=== PATIENT | female | born 1935 | race Caucasian/White ===

== ENCOUNTER 2019-01-27 13:15 | Observation (INO) | payer MEDICARE, OTHER, SELFPAY ==
[2019-01-27] VITALS (8 sets, daily range): BP systolic 131–166; BP diastolic 53–84; PULSE 64–100; RESP 14–18; TEMP 36.7–37; O2SAT 94–100; BMI 27.3; BMI 26.4
--- NOTE | 2019-01-27 13:32 | NURSING ---
Addendum entered by Modesta Zuniga 01/27/19 14:45: updated med list received from pt's daughter Original Note: HAVING DIFFICULTY RETRIEVING INFORMATION ON HX/MEDS FROM PT AND SISTER. MED LIST ENTERED IS FROM 2017; SISTER WILLING TO GO HOME AND BRING BACK PILL PACKS IF NECESSARY.
--- NOTE | 2019-01-27 13:41 | EKG12_ITS ---
Test Reason : EPIGASTRIC PAIN Blood Pressure : / mmHG Vent. Rate : 086 BPM Atrial Rate : 066 BPM P-R Int : 000 ms QRS Dur : 084 ms QT Int : 380 ms P-R-T Axes : 000 044 067 degrees QTc Int : 454 ms Atrial fibrillation with a competing junctional pacemaker and sinus rhythm Abnormal ECG Confirmed by BUNNY RUBIO, PILAR ([id number]), tape editor ERROL ARCHULETA ([id number] on 01/29/2019 11:43:39 AM Referred By: Mag Maxwell Confirmed By:PILAR HOLLIS MD
--- NOTE | 2019-01-27 13:41 | RAD_ITS ---
STUDY: X-RAY CHEST REASON FOR EXAM: Female, 83 years old. Shortness of breath TECHNIQUE: Single AP portable view of the chest. COMPARISON: None. FINDINGS: The lungs are clear and expanded. There is no demonstrated pleural abnormality. Sternal cerclage wires are present from a prior sternotomy. Normal mediastinum and mikaela. Normal visualized pulmonary arteries. There is atherosclerotic calcification of the aortic arch with tortuosity. There are diffuse degenerative changes of the visualized thoracic spine. Normal visualized ribs, clavicles, and shoulders. There is postoperative change in the right upper quadrant status post cholecystectomy. RAD/Chest 1 View (Portable) IMPRESSION: Degenerative changes, as described above. Status post sternotomy. No demonstrated acute cardiopulmonary process. Electronically Signed: Katheryn Bennett MD at 16:11 EDT Tel , Service support ,
--- NOTE | 2019-01-27 13:41 | CT_ITS ---
STUDY: CT ABDOMEN AND PELVIS WITH CONTRAST REASON FOR EXAM: Female, 83 years old. RADIATION DOSAGE (If Supplied By Facility): CTDIvol = ( 16.83 ) mGy, DLP = ( 843.89 ) mGycm TECHNIQUE: Transaxial images were obtained from the dome of the diaphragm to the symphysis pubis without oral contrast. 100ML IV Isovue 370 was administered. Sagittal and coronal images were reconstructed. Individualized dose optimization techniques were used for this CT. COMPARISON: None. FINDINGS: The visualized lung bases are unremarkable. There is moderate cardiac enlargement. There is visible postoperative change at the aortic root there is calcification of the coronary arteries. Sternotomy wires are seen midline. There is intra and extrahepatic ductal dilatation. The common duct measures up to 8.9 mm. There is no obvious visualized stone. There is a distended appearance of the adjacent duodenum. There are surgical clips in the gallbladder fossa consistent with a prior cholecystectomy. The well-circumscribed cystic structure within the spleen measuring 1.2 x 1.5 cm. There is an atrophied appearance of most of the pancreas. There is a mildly enlarged appearance of the head of the pancreas. Normal bilateral adrenal glands. There is mild right pelviectasis. There is a distended appearance of the proximal duodenum which may be partially compressing the right proximal ureter. Otherwise the bladder is distended. There is a left renal cyst demonstrated measuring 1.6 x 1.9 cm. There is a thick-walled appearance of the first part of the duodenum image #40 of the coronal views. Are mildly distended loops of small bowel. There is moderate stool in the colon there is diverticulosis without definitive diverticulitis. There is mild wall thickening of the sigmoid colon. The appendix is visualized and appears normal. Aorta is partially calcified. Normal inferior vena cava. Normal retroperitoneum. Moderate is distended. There is absence of the uterus consistent with a prior hysterectomy. Normal abdominal wall. There is degenerative change in the lumbar spine. There is anterolisthesis at the level L3-L4 and L4-L5. There is disc space narrowing broad disc bulge moderate neural foramina narrowing mild to moderate central stenosis. At L4-L5 there is severe neural foraminal narrowing severe central stenosis facet arthropathy. At L5-S1 there is facet arthropathy. There is degenerative change of the SI joints. CT/Abdomen/Pelvis W IV Cont ONLY IMPRESSION: There is abnormal thick walled appearance of the first part of the duodenum consistent with duodenitis cannot exclude underlying mass recommend consideration for further imaging such as potential endoscopy. Intra and extrahepatic ductal dilatation. Mild right pelviectasis right kidney which may be related to the adjacent distention of the duodenum. Status post cholecystectomy. Diverticulosis mild thickening of the wall the colon which may be chronic versus mild chronic colitis. Status post hysterectomy. Coronary artery calcification. Status post sternotomy Multilevel degenerative change of the thoracolumbar spine. Electronically Signed: Katheryn Bennett MD at 15:30 EDT Tel , Service support ,
--- NOTE | 2019-01-27 13:42 | CT_ITS ---
STUDY: CTA NECK WITH CONTRAST REASON FOR EXAM: Female, 83 years old. Head and neck pain RADIATION DOSAGE (If Supplied By Facility): CTDIvol = ( ) mGy, DLP = ( ) mGycm TECHNIQUE: CT angiography with multi-detector data acquisition was performed from the aortic arch to the skull base following intravenous administration of 100ML IV Isovue 370. MIP images were reconstructed from the axial data set. Post-processing of the angiographic images was performed, with multiplanar reformation and 3D reconstruction. Individualized dose optimization techniques were used for this CT. COMPARISON: None. FINDINGS: AORTIC ARCH: There is atherosclerotic calcific plaque formation of the aortic arch and great vessels arising from the aortic arch, without a hemodynamically significant stenosis. There is a normal origin of the brachiocephalic, left common carotid, and left subclavian arteries. RIGHT CAROTID ARTERIES: There is atherosclerotic tortuous elongation of the right common carotid artery. There is mild atherosclerotic plaque formation with minimal narrowing of the right carotid bulb. There is mild atherosclerotic plaque formation of the origin of the right internal carotid artery with less than 50% cross sectional diameter stenosis. Normal visualized cervical portion of the right internal carotid artery. Normal origin of the right external carotid artery (ECA). LEFT CAROTID ARTERIES: Normal left common carotid artery (CCA). There is mild atherosclerotic plaque formation with minimal narrowing of the left carotid bulb. There is moderate atherosclerotic plaque formation of the origin of the left internal carotid artery with an estimated stenosis of 50-69% stenosis. Normal visualized cervical portion of the left internal carotid artery. Normal origin of the left external carotid artery (ECA). VERTEBRAL ARTERIES: Normal bilateral vertebral arteries. There is degenerative change of the cervical spine. There is multilevel degenerative change visualized with multilevel facet arthropathy and mild neural foramina narrowing. CT/CTA Neck W/WO Contrast IMPRESSION: Less than 50% stenosis of the right internal carotid artery. 50-69% stenosis suggested origin of the left internal carotid artery. Electronically Signed: Katheryn Bennett MD at 16:03 EDT Tel , Service support ,
--- NOTE | 2019-01-27 13:42 | CT_ITS ---
STUDY: CTA OF THE BRAIN REASON FOR EXAM: Female, 83 years old. Pain RADIATION DOSAGE (If Supplied By Facility): CTDIvol = ( 32.87 ) mGy, DLP = ( 1314.0 ) mGycm TECHNIQUE: CT angiography was performed with a multi-detector CT scanner. Data acquisition was obtained from the skull base through the vertex following intravenous administration of 100ML IV Isovue 370. MIP images were reconstructed from the axial data set. Post-processing of the angiographic images was performed, with multiplanar reformation and 3D reconstruction. The study is limited. Limited reconstructed images were performed only with sagittal and coronal reformatted images this limits the evaluation of the soft tissue. Individualized dose optimization techniques were used for this CT. COMPARISON: None. FINDINGS: Normal bilateral petrous carotid arteries. There is calcified plaque formation of the right cavernous carotid artery, with a mild stenosis (less than 50%). Normal left cavernous carotid artery with a normal supraclinoid bifurcation. Normal right A1 segments of the anterior cerebral artery. Normal left A1 segments of the anterior cerebral artery. There is non-visualization of the anterior communicating artery (ACOM). Normal bilateral A2 segments of the anterior cerebral arteries. Normal right M1 and M2 segments of the middle cerebral arteries, with a normal M1 bifurcation. Normal left M1 and M2 segments of the middle cerebral arteries, with a normal M1 bifurcation. Normal right posterior communicating artery (PCOM). There is non-visualization of the left posterior communicating artery (PCOM). There is calcification of the right-sided vertebral artery with a small focus of mild to moderate plaque formation over a segment of 2.8 mm. Normal basilar artery with a normal basilar bifurcation. The visualized bilateral superior cerebellar (SCA) arteries are normal. Normal bilateral P1, P2 and visualized P3 segments of the posterior cerebral arteries. There is no demonstrated aneurysm of the [place]. There is a CT scan of the head provided with this study without contrast. There is mild atrophy no evidence of acute hemorrhage infarct or edema. CT/CTA Head W/WO Contrast IMPRESSION: Normal [place] without a demonstrated aneurysm or hemodynamically significant stenosis. Electronically Signed: Katheryn Bennett MD at 15:37 EDT Tel , Service support ,
--- NOTE | 2019-01-27 13:48 | NURSING ---
NO OLD EKGS
[2019-01-27 13:57] LABS: Absolute Lymphocyte Count 1.59 X10^3/ul (0.83-4.51); Absolute Neutrophil Count 7.5 X10^3/uL (2.0-7.7); Basophil# 0.04 X10^3/uL; Basophil% 0.4 % (0-1); Eosinophil# 0.01 X10^3/uL; Eosinophils% 0.1 % (0-5); Hematocrit 37.8 % (37-47); Hemoglobin 12.5 g/dl (12.0-15.0); Lymphocyte # 1.59 X10^3/ul (4.0); Lymphocyte % 16.1 % (19-41); Mean Corp Hgb Conc 33.1 g/gl (32-36); Mean Corpuscular Hgb 28.6 pg (27.0-32.0); Mean Corpuscular Volume 86.5 fL (81-99); Mean Platelet Vol. 12.7 fl (6.2-12.0); Monocyte# 0.68 X10^3/uL; Monocyte% 6.9 % (0-10); Neutrophil # 7.53 X10^3/uL (2.7-7.7); Neutrophil % 76.2 % (47-70); POSITIVE COUNT NO; POSITIVE DIFFERENTIAL NO; POSITIVE MORPHOLOGY NO; Platelet Count 213 K/mm3 (150-450); RBC Distribution Width CV 14.1 % (11.6-14.6); RBC Distribution Width SD 43.4 fl (35.1-43.9); Red Blood Count 4.37 M/mm3 (4.2-5.4); White Blood Count 9.9 K/mm3 (4.4-11.0)
[2019-01-27 14:05] LABS: Mucous, Urine 0 SEEN /hpf (<or=2+); Red Blood Cells-Urine 0 SEEN /hpf (0-5); Squamous Epithelial Cells - UA 0 SEEN /hpf (5-10); White Blood Cells 0 SEEN /hpf (0-5)
[2019-01-27 14:07] LABS: Color, Urine Yellow (Yellow); Glucose, Dipstick Normal (Normal); Ketone-Dipstick Negative (Negative); Leukocyte Esterase-Dipstick Negative /ul (Negative); Nitrite-Dipstick Negative (Negative); Occult Blood-Urine 10 /ul (Negative); Protein-Dipstick Negative (Negative); Urine Bilirubin Dipstick Negative (Negative); Urine Clarity Clear (Clear); Urine Urobilinogen Normal (Normal)
[2019-01-27 14:09] LABS: AST(SGOT) 21 U/L (15-37); Alanine Aminotransfer ALT/SGPT 19 U/L (13-56); Albumin, Serum 3.6 g/dL (3.2-5.0); Alkaline Phosphatase 86 U/L (45-117); Anion Gap 9 (5-15); BUN 35 mg/dL (7-18); BUN/Creat Ratio 22.4 RATIO (10-20); Bilirubin, Direct 0.19 mg/dL (0.00-0.30); Calcium,Total 9.1 mg/dL (8.5-10.1); Chloride 107 mmol/L (98-107); Creatinine, Serum 1.56 mg/dL (0.55-1.02); EST Glomerular Filtration Rate 34 mL/min (>60); Est Glom Filt Rate - Afr Amer 41 mL/min (>60); Estimated Creatinine Clearance 24.59 ml/min; Globulin 3.2 g/dL (2.2-4.2); Glucose 145 mg/dL (74-106); Lipase 121 U/L (73-393); Potassium 4.2 mmol/L (3.5-5.1); Protein, Total 6.8 g/dL (6.4-8.2); Sodium Level 139 mmol/L (136-145)
[2019-01-27 14:17] LABS: Bacteria 1+ /hpf (None Seen); Hyaline Cast 10-25 SEEN /lpf (0-5)
--- NOTE | 2019-01-27 14:39 | ED.VISSUMM ---
- ER Visit Summary Date of Service: 01/27/19 Chief Complaint: Headache History of Present Illness: The patient is a 83 F presenting with headache and pain all over. Patient's sister went to check on her this morning. She complains of headache and pain all over. She has had a decreased appetite and has not been eating. Patient has a history of dementia and history is limited. Per her family her primary caregiver is her daughter who lives in [place]. She lives alone. Her sister took her blood pressure this morning and it was low. EMS was called. On their arrival her blood pressure was normal. Physical Examination: Vitals are stable. Blood pressure 133/53. Patient is afebrile. Alert no acute distress. HEENT exam is unremarkable. Neck is supple. No meningismus Lungs are clear and equal bilaterally. Heart is irregularly irregular Abdomen is soft epigastric tenderness with no rebound or guarding Extremities are unremarkable. Skin is warm and dry. No focal neurologic deficit. Alert and oriented x2 Remainder of exam is unremarkable. Emergency Department Course and Treatment: EKG shows A. fib rate of 86 with no acute ischemic changes. CBC, chemistries unremarkable other than glucose 145, BUN 35, creatinine 1.56. Liver lipase are normal. Urinalysis unremarkable. Troponin 0.022. CT abdomen pelvis shows there is abnormal thick walled appearance of the first part of the duodenum consistent with duodenitis cannot exclude underlying mass recommend consideration for further imaging such as potential endoscopy. Intra and extrahepatic ductal dilatation. Mild right pelviectasis right kidney which may be related to the adjacent distention of the duodenum. Status post cholecystectomy. Diverticulosis mild thickening of the wall the colon which may be chronic versus mild chronic colitis. Status post hysterectomy. Coronary artery calcification. Status post sternotomy. Multilevel degenerative change of the thoracolumbar spine. CTA neck shows less than 50% stenosis of the right internal carotid artery. 50-69% stenosis suggested origin of the left internal carotid artery. CTA head shows normal [place] without a demonstrated aneurysm or hemodynamically significant stenosis. Chest xray shows degenerative changes, as described above. Status post sternotomy. No demonstrated acute cardiopulmonary process. Discussed with family at bedside and her power of assistant city attorney on the phone. They feel patient needs placement and can no longer live alone. Discussed with the hospitalist for admission. Disposition: Admission Impression: Functional decline, duodenitis, dementia This note was generated with Dragon dictation software. It may contain incorrect words, spelling, and punctuation that were not noted in review of the chart prior to signing ED Disposition - Plan for ED Patient: Referrals: Evelyn Larsen [Primary Care Provider] -
--- NOTE | 2019-01-27 17:23 | NURSING ---
[facility]
--- NOTE | 2019-01-27 17:51 | HP.PCM_ITS ---
<Aman Basilio - Last Filed: 01/27/19 17:46> Problem List (1) Weakness Status: Acute (2) Paroxysmal A-fib Status: Chronic (3) Alzheimer's dementia Status: Chronic (4) HTN (hypertension) Status: Chronic (5) H/O aortic valve repair Status: Chronic History of Present Illness Date of Admission: 01/27/19 Chief Complaint: weakness The patient is a 83 year old F with pmhx of paroxysmal afib occurring after aortic valve replacement and alzheimers dementia who presented to the ER today with weakness. She is a poor historian and family is present providing most of hx. She has apparently qualified for memory care placement in the past however her daughter CHRIS did not feel that she was ready at that time. CHRIS had been planning to move her to [place] with her. She is not currently present. The patient was very weak this AM, sleeping in, not able to take many steps before becoming very tired and needing to sit down. Her family checked her BP at home and was noted to be 70/42 however she has had a normal pressure in the ER without treatment. She also has not been eating lately, and has been missing her medications at home (family checked the med boxes). She lives alone in a house. She complains of midepigastric discomfort and headache. In the ER she was in rate controlled afib. She used to be on metoprolol but is now off for unclear reasons. She has not fallen. She has no nausea vomiting, diarrhea, fevers, or chills. Her headache is mild, frontal, BL. Family is hopeing she will be placed, they are concerned the CHRIS will not allow placement. [] Past Medical History Past Medical History (Chronic Problems): Chronic Problems Paroxysmal A-fib (Chronic) Alzheimer's dementia (Chronic) HTN (hypertension) (Chronic) H/O aortic valve repair (Chronic) Allergies oxycodone Allergy (Verified 01/27/19 13:26) Other amoxicillin [From Augmentin] Adverse Reaction (Verified 01/27/19 13:26) Nausea clarithromycin [From Biaxin] Adverse Reaction (Verified 01/27/19 13:26) Nausea clavulanic acid [From Augmentin] Adverse Reaction (Verified 01/27/19 13:26) Nausea lovastatin [From Mevacor] Adverse Reaction (Verified 01/27/19 13:26) Other pravastatin [From Pravachol] Adverse Reaction (Verified 01/27/19 13:26) Abd cramps/diarrhea simvastatin [From Zocor] Adverse Reaction (Verified 01/27/19 13:26) Abd cramps/diarrhea Home Medications: Ambulatory Orders Medication Instructions Recorded Amlodipine [Norvasc] 5 mg PO BID 01/27/19 Aspirin E.C. [Ecotrin] 81 mg PO DAILY 01/27/19 Atorvastatin Calcium [Lipitor] 20 mg PO QHS 01/27/19 Calcium Carbonate [Calcium] 600 mg PO DAILY 01/27/19 Carvedilol 3.125 mg PO QHS 01/27/19 Cholecalciferol (Vitamin D3) 2,000 unit PO DAILY 01/27/19 [Vitamin D3] Donepezil HCl [Aricept] 20 mg PO BID 01/27/19 Furosemide [Lasix] 40 mg PO DAILY 01/27/19 Losartan Potassium [Cozaar] 100 mg PO DAILY 01/27/19 Multivitamin [Multiple Vitamins] 1 each PO DAILY 01/27/19 [place]-3 Fatty Acids [Fish Oil] 500 mg PO DAILY 01/27/19 Omeprazole [Prilosec] 20 mg PO BID 01/27/19 Surgical History: - - aortic valve replacement Psychiatric History: No pertinent psych hx [employer] [employer]ISTS History: No pertinent [facility] [employer] history Lives: Alone Smoking Status: Never smoker Tobacco Use: Non-smoker Alcohol: None Drugs: None - *Family History Maternal History Items: No pertinent history Paternal History Items: No pertinent history Review of Systems Constitutional: Reports: Weakness, Fatigue. Denies: Chills, Fever, Weight Change HEENT: Denies: Head Aches, Sinus Congestion, Sinus Drainage, Sore Throat, Visual Changes Cardiovascular: Denies: Chest Pain, Palpitations Respiratory: Denies: Cough, Shortness of Breath, Shortness of breath at rest, Shortness of breath upon exertion, Sputum production, Wheezing Gastrointestinal: Reports: Abdominal Pain. Denies: Diarrhea, Nausea, Vomiting Genitourinary: Denies: Dysuria Musculoskeletal: Denies: Joint Pain, Joint Tenderness Skin: Denies: Rash, Wounds Neurological: Reports: Confusion - (baseline), Headaches. Denies: Change in Speech, Slurred speech, Focal weakness, Numbness, Tingling Psychiatric: Denies: Anxiety, Depression, Homicidal Ideations, Suicidal Ideations Hematologic/ Lymphatic: Denies: Easy Bruising, Easy Bleeding VTE Information - Inpt Only VTE Present on Admission: No VTE Mechan Device Prophylaxis: None VTE Pharm Prophylaxis ordered?: Yes Patient Problems: Active and Suspected Problems Weakness (Acute) - Physical Exam General: Alert, Oriented x3, Cooperative HEENT: Atraumatic, PERRLA, EOMI, Normocephalic Neck: Supple, No JVD, Negative Carotid Bruits Lungs: Clear to auscultation, Normal air movement Cardiovascular: No murmurs, Irregular Rate, Murmur - 3/6 systolic murmur Abdomen: Bowel Sounds Present, Soft, Non Tender, Tender - mild tenderness midepigastric Extremities: No edema, Capillary Refill Less than 3 Seconds Skin: No rashes, No breakdown Musculoskeletal: No Tenderness to Palpation of Joints or Extremities Neurological: Cranial nerves II-XII grossly intact Psych/Mental Status: Normal Affect, Appropriate Vital Signs Temp Pulse Resp BP Pulse Ox 98.3 F 88 18 156/84 H 97 01/27/19 13:17 01/27/19 16:04 01/27/19 16:04 01/27/19 16:04 01/27/19 16:04 Oxygen Delivery Method Room Air Weight: 164 lb 0.383 oz Body Mass Index (BMI) 27.3 Laboratory Tests Past 24 Hrs 01/27/19 01/27/19 01/27/19 13:25 13:25 14:02 WBC 9.9 RBC 4.37 Hgb 12.5 Hct 37.8 MCV 86.5 MCH 28.6 MCHC 33.1 RDW 14.1 RDW Differential 43.4 Plt Count 213 MPV 12.7 H Immature Gran % (Auto) 0.300 Neut % (Auto) 76.2 H Lymph % (Auto) 16.1 L [place] % (Auto) 6.9 Eos % (Auto) 0.1 Baso % (Auto) 0.4 Absolute Neuts (auto) 7.5 Absolute Lymphs (auto) 1.59 Total Counted Not Reportable Sodium 139 Potassium 4.2 Chloride 107 Carbon Dioxide 23.0 Anion Gap 9 BUN 35 H Creatinine 1.56 H Estim Creat Clear Calc 24.59 Est GFR (MDRD) Af Amer 41 L Est GFR (MDRD) Non-Af 34 L BUN/Creatinine Ratio 22.4 H Glucose 145 H Calcium 9.1 Total Bilirubin 0.50 Direct Bilirubin 0.19 AST 21 ALT 19 Alkaline Phosphatase 86 Troponin I 0.022 Total Protein 6.8 Albumin 3.6 Globulin 3.2 Lipase 121 Urine Color Yellow Urine Clarity Clear Urine pH 5.0 Ur Specific [place] 1.010 Urine Protein Negative Urine Glucose (UA) Normal Urine Ketones Negative Urine Occult Blood 10 H Urine Nitrite Negative Urine Bilirubin Negative Urine Urobilinogen Normal Ur Leukocyte Esterase Negative Urine RBC 0 SEEN Urine WBC 0 SEEN Ur Squamous Epith Cells 0 SEEN Urine Bacteria 1+ Hyaline Casts 10-25 SEEN Urine Mucus 0 SEEN Assessment/Plan All Active Problems Weakness (Acute) 1. Epigastric pain - increase PPI to BID. Trend cardiac enzymes. repeat AM EKG. No acute ischemic changes on EKG in ER. Trop negative. CT abdomen possibly changes at the duodenum. Hgb stable. CXR negative. UA negative. 2. Paroxysmal Afib - currently rate controlled. Consult cardiology. Concern for OAC as pt elderly and with advanced dementia. Previously on metoprolol, unclear why this was stopped. Monitor on tele for now. 3. Debility/weakness - PTOT. Likely needs placed. Unsafe to return home alone. Consult to CM/SW. 4. Alzheimers - continue aricept. Pt not taking home meds and eating poorly at home. Previously qualified for memory care facility per family. 5. Suspect CKD - unclear baseline. Suspect some dehydration. Will give IV fluids. 6. Carotid artery stenosis - 50-69% left ICA, otherwise unremarkable CTA head and neck. Pt would benefit from aspirin/low dose statin. DVT ppx: heparin DC planning: PTOT, may need placement, need to discuss with POA (daughter - not present) This patient was seen by Aman Basilio PA-C under the supervision of Dr. Maxwell. <Mag Maxwell - Last Filed: 01/27/19 19:58> History of Present Illness The patient is a 83 year old F [] Past Medical History Allergies oxycodone Allergy (Verified 01/27/19 13:26) Other amoxicillin [From Augmentin] Adverse Reaction (Verified 01/27/19 13:26) Nausea clarithromycin [From Biaxin] Adverse Reaction (Verified 01/27/19 13:26) Nausea clavulanic acid [From Augmentin] Adverse Reaction (Verified 01/27/19 13:26) Nausea lovastatin [From Mevacor] Adverse Reaction (Verified 01/27/19 13:26) Other pravastatin [From Pravachol] Adverse Reaction (Verified 01/27/19 13:26) Abd cramps/diarrhea simvastatin [From Zocor] Adverse Reaction (Verified 01/27/19 13:26) Abd cramps/diarrhea - Physical Exam Vital Signs Temp Pulse Resp BP Pulse Ox 98.6 F 64 14 131/60 H 94 01/27/19 19:05 01/27/19 19:05 01/27/19 19:05 01/27/19 19:05 01/27/19 19:05 Oxygen Delivery Method Room Air Weight: 69.8 kg Body Mass Index (BMI) 26.4 Laboratory Tests Past 24 Hrs 01/27/19 01/27/19 01/27/19 13:25 13:25 14:02 WBC 9.9 RBC 4.37 Hgb 12.5 Hct 37.8 MCV 86.5 MCH 28.6 MCHC 33.1 RDW 14.1 RDW Differential 43.4 Plt Count 213 MPV 12.7 H Immature Gran % (Auto) 0.300 Neut % (Auto) 76.2 H Lymph % (Auto) 16.1 L [place] % (Auto) 6.9 Eos % (Auto) 0.1 Baso % (Auto) 0.4 Absolute Neuts (auto) 7.5 Absolute Lymphs (auto) 1.59 Total Counted Not Reportable Sodium 139 Potassium 4.2 Chloride 107 Carbon Dioxide 23.0 Anion Gap 9 BUN 35 H Creatinine 1.56 H Estim Creat Clear Calc 24.59 Est GFR (MDRD) Af Amer 41 L Est GFR (MDRD) Non-Af 34 L BUN/Creatinine Ratio 22.4 H Glucose 145 H Calcium 9.1 Total Bilirubin 0.50 Direct Bilirubin 0.19 AST 21 ALT 19 Alkaline Phosphatase 86 Troponin I 0.022 Total Protein 6.8 Albumin 3.6 Globulin 3.2 Lipase 121 Urine Color Yellow Urine Clarity Clear Urine pH 5.0 Ur Specific [place] 1.010 Urine Protein Negative Urine Glucose (UA) Normal Urine Ketones Negative Urine Occult Blood 10 H Urine Nitrite Negative Urine Bilirubin Negative Urine Urobilinogen Normal Ur Leukocyte Esterase Negative Urine RBC 0 SEEN Urine WBC 0 SEEN Ur Squamous Epith Cells 0 SEEN Urine Bacteria 1+ Hyaline Casts 10-25 SEEN Urine Mucus 0 SEEN Assessment/Plan This patient was seen in conjunction with PATY Cantu. I have independently interviewed and examined the patient and reviewed pertinent historical, laboratory, and other data. Please refer to PATY Cantu note for his patient's presentation, findings, and recommendations. I have reviewed and his note and concur with his documentation CC: Generalised weakness HPI: 83-year-old female history of paroxysmal atrial fibrillation, status post aortic valve replacement, Alzheimer's dementia who lives alone comes in with progressive weakness. Patient lives by herself and her sister checking on her and she was found to be very weak. She checked her blood pressure and was said to be 70/42. However when the EMS was called patient had normal blood pressure. Since being in the ED her blood pressures have been fine. She was found to be in A. fib. Not on anticoagulation, not on multiple follow-up. Patient denies histories of fall. Family is waiting on daughter who is the POA for health from [place] to come. She has however expressed to the siblings that she wants cardiology consult. She plans on sending mother back with her to [place]. PMHX: As in HPI PSHx: s/p aortic valve replacement FHX: Denies any pertinent history SHX: Denies smoking or alcohol or illicit drug use Physical Exam: Vitals: BP 152/77, HR 92, RR 16, 200% on room air, temperature was 90 8.3F Gen: Appears comfortable, not pale, not jaundiced CVS:HS I +II, regular, no murmurs RESP: Currently clear to auscultation GI: BS present and normal, soft, nontender, no palpable organs EXT:No edema Labs: CBC is unremarkable, BMP shows BUN of 35, creatinine 1.56, unknown previous creatinine ASSESSMENT: 1. Acute metabolic encephalopathy, in a patient with dementia, appears resolved 2. Hypertension 3. GERD 4. Hyperlipidemia 5. Paroxysmal atrial fibrillation Plan: Admit to PCU, monitor on telemetry Family request cardiology consult. Continue on home medication, gentle IV fluids Code Visit OBSV E&M: 36766 Initial observation care L3
[2019-01-27] MEDS: 0.9% Normal Saline 1,000 ML 75 ML IV (20:23)
[2019-01-27] MEDS: Pantoprazole Sodium 40 MG Tablet PO (22:11)
[2019-01-27] MEDS: Atorvastatin Calcium 20 MG Tablet PO (22:11)
[2019-01-27] MEDS: Carvedilol 3.125 MG TABLET PO (22:11)
[2019-01-27] MEDS: Heparin Injection (Vial) 5,000 UNIT/ML VIAL 5000 UNIT SC (22:13)
[2019-01-28 03:00] VITALS: PULSE 63
[2019-01-28 03:45] VITALS: BP 128/44; PULSE 58; RESP 18; TEMP 37; O2SAT 96
[2019-01-28] MEDS: 0.9% NaCl Peripheral Flush Adult/Peds IV (03:50)
--- NOTE | 2019-01-28 04:29 | EKG12_ITS ---
Test Reason : RHYTHMN CHANGE Blood Pressure : / mmHG Vent. Rate : 070 BPM Atrial Rate : 064 BPM P-R Int : 000 ms QRS Dur : 090 ms QT Int : 412 ms P-R-T Axes : 000 044 058 degrees QTc Int : 444 ms Sinus rhythm with PSVCs Minimal voltage criteria for LVH, may be normal variant Abnormal ECG Confirmed by BRENNON RUBIO, PEG ([id number]), news editor ERROL ARCHULETA ([id number]) on 02/02/2019 6:46:29 AM Referred By: Mag Maxwell Confirmed By:PEG WILLETT MD
[2019-01-28 06:02] LABS: Anion Gap 7 (5-15); BUN 33 mg/dL (7-18); BUN/Creat Ratio 25.4 RATIO (10-20); Calcium,Total 8.8 mg/dL (8.5-10.1); Chloride 111 mmol/L (98-107); EST Glomerular Filtration Rate 42 mL/min (>60); Est Glom Filt Rate - Afr Amer 50 mL/min (>60); Estimated Creatinine Clearance 28.31 ml/min; Glucose 101 mg/dL (74-106); Potassium 4.2 mmol/L (3.5-5.1); Sodium Level 144 mmol/L (136-145)
[2019-01-28] MEDS: Heparin Injection (Vial) 5,000 UNIT/ML VIAL 5000 UNIT SC (06:09)
[2019-01-28 06:56] VITALS: PULSE 77
[2019-01-28] MEDS: Aspirin 81 MG TAB.CHEW PO (09:06)
[2019-01-28 09:48] VITALS: BP 113/57; PULSE 72; RESP 14; TEMP 36.9; O2SAT 98
[2019-01-28] MEDS: Furosemide 40 MG Tablet PO (10:47)
[2019-01-28] MEDS: Losartan Potassium 100 MG Tablet PO (10:48)
[2019-01-28] MEDS: amLODIPine 5 MG Tablet PO (10:48)
[2019-01-28] MEDS: Pantoprazole Sodium 20 MG Tablet PO (10:52)
--- NOTE | 2019-01-28 11:07 | PCM.DC ---
- Discharge Diagnoses Current Active Problems: Current Active and Chronic Problems Paroxysmal A-fib (Chronic) Alzheimer's dementia (Chronic) HTN (hypertension) (Chronic) H/O aortic valve repair (Chronic) Weakness (Acute) You will use the following diet at home:: Cardiac Your food should be the consistency of: Regular Discharge Activity: May Not Drive Call your doctor if you observe: Fever of 101 or Higher, Inability to have a bowel movement, Shortness of breath, Dizziness, Fainting spells, Swelling in the ankles, Chest pain, Increased palpitations (irregular heartbeat) Additional Instructions: F/U With gas appliance installer, , Dr Vitale on 02/05 for outpateint ECHO. Follow-up [facility] for duodenal wall thickening with history of chronic peptic ulcer disease for possible EGD Allergies/Adverse Reactions: Allergies oxycodone Allergy (Verified 01/27/19 13:26) Other amoxicillin [From Augmentin] Adverse Reaction (Verified 01/27/19 13:26) Nausea clarithromycin [From Biaxin] Adverse Reaction (Verified 01/27/19 13:26) Nausea clavulanic acid [From Augmentin] Adverse Reaction (Verified 01/27/19 13:26) Nausea lovastatin [From Mevacor] Adverse Reaction (Verified 01/27/19 13:26) Other pravastatin [From Pravachol] Adverse Reaction (Verified 01/27/19 13:26) Abd cramps/diarrhea simvastatin [From Zocor] Adverse Reaction (Verified 01/27/19 13:26) Abd cramps/diarrhea Medications to take at Discharge Amlodipine [Norvasc] 5 mg PO BID 01/27/19 Aspirin E.C. [Ecotrin] 81 mg PO DAILY 01/27/19 Atorvastatin Calcium [Lipitor] 20 mg PO QHS 01/27/19 Carvedilol 3.125 mg PO QHS 01/27/19 Donepezil HCl [Aricept] 10 mg PO BID 01/27/19 Furosemide [Lasix] 40 mg PO DAILY 01/27/19 Losartan Potassium [Cozaar] 100 mg PO DAILY 01/27/19 Omeprazole [Prilosec] 20 mg PO BID 01/27/19 Primary Care Physician: Evelyn Larsen [Primary Care Provider] - Please follow up with your Primary Care Physician in: in 1-2 week Test Results: Test results from this visit will be discussed in further detail at your follow-up appointment, if applicable.
--- NOTE | 2019-01-28 11:11 | DS.PCM_ITS ---
Discharge Date and Diagnosis Date of Admission: 01/27/19 Date of Discharge: 01/28/19 - Primary Discharge Diagnosis Active and Suspected Problems Weakness (Acute) - Secondary Discharge Diagnosis Chronic Problems Paroxysmal A-fib (Chronic) Alzheimer's dementia (Chronic) HTN (hypertension) (Chronic) H/O aortic valve repair (Chronic) Hospital Course and Treatment Summary of Care Provided: The patient is a 83-year-old female history of paroxysmal atrial fibrillation, status post aortic valve replacement, Alzheimer's dementia was living alone by herself was brought in for generalized weakness, low blood pressure BP 70/42. However when the EMS was called patient had normal blood pressure. The patient has history of paroxysmal A. fib but rate is controlled and not on anti- collection probably for history of Alzheimer's dementia and concern for fall although she did have recent fall. 1. Epigastric pain; most probably chronic peptic ulcer disease, not compliant to PPI-probably patient had EGD about 3 to 4 years ago and was found peptic ulcer disease and is started on Protonix 40 mg twice daily. Patient's daughter was advised the importance of PPI. Follow-up GI in [place] for possible repeat EGD. CT abdomen showed thickening of first part of duodenum. 2. Paroxysmal Afib - currently rate controlled. Patient serial troponin is negative. EKG shows A. fib and telemetry shows A. fib. Rate is controlled. Follow-up EKG showed sinus rhythm with PACs and LVH. Patient was advised outpatient follow-up with asphalt machine operator in with repeat echo on 02/06/2019. Patient was seen by asphalt machine operator Dr. Mccracken and he agrees with the plan. Continue Coreg 3.125 mg at bedtime. 3. Debility/weakness - PTOT. Likely needs placed. Unsafe to return home alone. Patient's daughter, power of corporate associate attorney agreed to take care of her at home. Options were given for home with home health healthcare representative or SNF but patients want to take her home. 4. Alzheimers - continue aricept. Pt not taking home meds and eating poorly at home. 5. Suspect CKD - unclear baseline. Patient was given IV fluid and dehydration corrected. 6. Carotid artery stenosis - 50-69% left ICA, otherwise unremarkable CTA head and neck. Pt would benefit from aspirin/low dose statin. DVT ppx: heparin Patient has a daughter, power of corporate associate attorney, Ms. Kadi Clifford. I discussed with her in detail regarding course of paroxysmal A. fib, peptic ulcer disease and future things to be done as an outpatient including EGD if her clinical status allows and follow-up with [facility], asphalt machine operator Dr. Vaughn on 02/06/2019. Discharge medication reconciliation done. Discharge follow-up instructions completed. Discharge process discussed with the patient and all questions were answered to patient's satisfaction. Total time spent, exact 35 minutes on discharge meds reconciliation, examination, review of imaging and blood test and discussion with the patient on follow-up instructions. Laboratory Results 01/28/19 05:28: Sodium 144, Potassium 4.2, Chloride 111 H, Carbon Dioxide 26.0, Anion Gap 7, BUN 33 H, Creatinine 1.30 H, Estim Creat Clear Calc 28.31, Est GFR (MDRD) Af Amer 50 L, Est GFR (MDRD) Non-Af 42 L, BUN/Creatinine Ratio 25.4 H, Glucose 101, Calcium 8.8 Clinical Impression(s) from Imaging Studies Abdomen/Pelvis CT 01/27/19 13:41 IMPRESSION: There is abnormal thick walled appearance of the first part of the duodenum consistent with duodenitis cannot exclude underlying mass recommend consideration for further imaging such as potential endoscopy. Intra and extrahepatic ductal dilatation. Mild right pelviectasis right kidney which may be related to the adjacent distention of the duodenum. Status post cholecystectomy. Diverticulosis mild thickening of the wall the colon which may be chronic versus mild chronic colitis. Status post hysterectomy. Coronary artery calcification. Status post sternotomy Multilevel degenerative change of the thoracolumbar spine. Chest X-Ray 01/27/19 13:41 IMPRESSION: Degenerative changes, as described above. Status post sternotomy. No demonstrated acute cardiopulmonary process. Electronically Signed: Katheryn Bennett MD at 16:11 EDT Tel , Service support , Head CTA 01/27/19 13:42 IMPRESSION: Normal [facility] without a demonstrated aneurysm or hemodynamically significant stenosis. Neck CTA 01/27/19 13:42 IMPRESSION: Less than 50% stenosis of the right internal carotid artery. 50-69% stenosis suggested origin of the left internal carotid artery. Subjective: Seen and examined. Patient denies chest pain, shortness of breath, palpitation. Patient is an elderly woman with Alzheimer's dementia. History mainly taken from patient's daughter who is caregiver near the bedside. Patient daughter denies any recent fall. She is liquid bruises even though she is not on Coumadin. paroxysmal A. fib, heart rate is controlled on Coreg 3.125 mg at bedtime daily. Patient also had EGD probably about 3 to 4 years ago and was found to have peptic ulcer disease. CT abdomen revealed duodenal wall thickening. Patient not compliant with PPI also prescribe 40 mg Protonix twice daily. - Physical Exam General: Alert, Oriented x3, Cooperative HEENT: Atraumatic, PERRLA, EOMI, Normocephalic Neck: Supple, No JVD, Negative Carotid Bruits Lungs: Clear to auscultation, No rhonchi, No wheeze, No rales, Diminished Cardiovascular: Normal S1, Normal S2, No murmurs, Irregular Rate Abdomen: Bowel Sounds Present, Soft, Non Tender, Non-Distended Extremities: No edema, Capillary Refill Less than 3 Seconds Skin: No rashes, No breakdown Musculoskeletal: No Tenderness to Palpation of Joints or Extremities, Arthritic Changes Neurological: Cranial nerves II-XII grossly intact, Deep Tendon Reflexes 2+/4 and Symmetrical, Neuro grossly intact Psych/Mental Status: Normal Affect, Appropriate Vital Signs Temp Pulse Resp BP Pulse Ox 98.4 F 72 14 113/57 L 98 01/28/19 09:48 01/28/19 09:48 01/28/19 09:48 01/28/19 09:48 01/28/19 09:48 Oxygen Delivery Method Room Air Weight: 153 lb 14.122 oz Body Mass Index (BMI) 26.4 Intake and Output for Last 24 Hours 01/26/19 01/27/19 01/28/19 23:59 23:59 23:59 Intake Total 561 / 561 447 / 447 Balance 561 / 561 447 / 447 Laboratory Tests Past 24 Hrs 01/27/19 01/27/19 01/27/19 13:25 13:25 14:02 WBC 9.9 RBC 4.37 Hgb 12.5 Hct 37.8 MCV 86.5 MCH 28.6 MCHC 33.1 RDW 14.1 RDW Differential 43.4 Plt Count 213 MPV 12.7 H Immature Gran % (Auto) 0.300 Neut % (Auto) 76.2 H Lymph % (Auto) 16.1 L [place] % (Auto) 6.9 Eos % (Auto) 0.1 Baso % (Auto) 0.4 Absolute Neuts (auto) 7.5 Absolute Lymphs (auto) 1.59 Total Counted Not Reportable Sodium 139 Potassium 4.2 Chloride 107 Carbon Dioxide 23.0 Anion Gap 9 BUN 35 H Creatinine 1.56 H Estim Creat Clear Calc 24.59 Est GFR (MDRD) Af Amer 41 L Est GFR (MDRD) Non-Af 34 L BUN/Creatinine Ratio 22.4 H Glucose 145 H Calcium 9.1 Total Bilirubin 0.50 Direct Bilirubin 0.19 AST 21 ALT 19 Alkaline Phosphatase 86 Troponin I 0.022 Total Protein 6.8 Albumin 3.6 Globulin 3.2 Lipase 121 Urine Color Yellow Urine Clarity Clear Urine pH 5.0 Ur Specific [place] 1.010 Urine Protein Negative Urine Glucose (UA) Normal Urine Ketones Negative Urine Occult Blood 10 H Urine Nitrite Negative Urine Bilirubin Negative Urine Urobilinogen Normal Ur Leukocyte Esterase Negative Urine RBC 0 SEEN Urine WBC 0 SEEN Ur Squamous Epith Cells 0 SEEN Urine Bacteria 1+ Hyaline Casts 10-25 SEEN Urine Mucus 0 SEEN 01/28/19 05:28 WBC RBC Hgb Hct MCV MCH MCHC RDW RDW Differential Plt Count MPV Immature Gran % (Auto) Neut % (Auto) Lymph % (Auto) [place] % (Auto) Eos % (Auto) Baso % (Auto) Absolute Neuts (auto) Absolute Lymphs (auto) Total Counted Sodium 144 Potassium 4.2 Chloride 111 H Carbon Dioxide 26.0 Anion Gap 7 BUN 33 H Creatinine 1.30 H Estim Creat Clear Calc 28.31 Est GFR (MDRD) Af Amer 50 L Est GFR (MDRD) Non-Af 42 L BUN/Creatinine Ratio 25.4 H Glucose 101 Calcium 8.8 Total Bilirubin Direct Bilirubin AST ALT Alkaline Phosphatase Troponin I Total Protein Albumin Globulin Lipase Urine Color Urine Clarity Urine pH Ur Specific [place] Urine Protein Urine Glucose (UA) Urine Ketones Urine Occult Blood Urine Nitrite Urine Bilirubin Urine Urobilinogen Ur Leukocyte Esterase Urine RBC Urine WBC Ur Squamous Epith Cells Urine Bacteria Hyaline Casts Urine Mucus Discharge Activity: May Not Drive Call your doctor if you observe: Fever of 101 or Higher, Inability to have a bowel movement, Shortness of breath, Dizziness, Fainting spells, Swelling in the ankles, Chest pain, Increased palpitations (irregular heartbeat) Home Medications: Medications to take at Discharge Amlodipine [Norvasc] 5 mg PO BID 01/27/19 Aspirin E.C. [Ecotrin] 81 mg PO DAILY 01/27/19 Atorvastatin Calcium [Lipitor] 20 mg PO QHS 01/27/19 Carvedilol 3.125 mg PO QHS 01/27/19 Donepezil HCl [Aricept] 10 mg PO BID 01/27/19 Furosemide [Lasix] 40 mg PO DAILY 01/27/19 Losartan Potassium [Cozaar] 100 mg PO DAILY 01/27/19 Omeprazole [Prilosec] 20 mg PO BID 01/27/19 Primary Care Physician: Evelyn Larsen [Primary Care Provider] - Please follow up with your Primary Care Physician in: in 1-2 week Medical Necessity - Tobacco Use Smoking Status: Former smoker Tobacco Use: Non-smoker Meaningful Use Info Meaningful Use Diagnoses (Choose all that apply): None applicable Code Visit OBSV E&M: 62953 Observation care discharge
--- NOTE | 2019-01-28 11:11 | DCINST_ITS ---
- Discharge Diagnoses Current Active Problems: Current Active and Chronic Problems Paroxysmal A-fib (Chronic) Alzheimer's dementia (Chronic) HTN (hypertension) (Chronic) H/O aortic valve repair (Chronic) Weakness (Acute) You will use the following diet at home:: Cardiac Your food should be the consistency of: Regular Discharge Activity: May Not Drive Call your doctor if you observe: Fever of 101 or Higher, Inability to have a bowel movement, Shortness of breath, Dizziness, Fainting spells, Swelling in the ankles, Chest pain, Increased palpitations (irregular heartbeat) Additional Instructions: F/U With cheesemaking laborer, , Dr Vitale on 02/05 for outpateint ECHO. Follow-up [facility] for duodenal wall thickening with history of chronic peptic ulcer disease for possible EGD Allergies/Adverse Reactions: Allergies oxycodone Allergy (Verified 01/27/19 13:26) Other amoxicillin [From Augmentin] Adverse Reaction (Verified 01/27/19 13:26) Nausea clarithromycin [From Biaxin] Adverse Reaction (Verified 01/27/19 13:26) Nausea clavulanic acid [From Augmentin] Adverse Reaction (Verified 01/27/19 13:26) Nausea lovastatin [From Mevacor] Adverse Reaction (Verified 01/27/19 13:26) Other pravastatin [From Pravachol] Adverse Reaction (Verified 01/27/19 13:26) Abd cramps/diarrhea simvastatin [From Zocor] Adverse Reaction (Verified 01/27/19 13:26) Abd cramps/diarrhea Medications to take at Discharge Amlodipine [Norvasc] 5 mg PO BID 01/27/19 Aspirin E.C. [Ecotrin] 81 mg PO DAILY 01/27/19 Atorvastatin Calcium [Lipitor] 20 mg PO QHS 01/27/19 Carvedilol 3.125 mg PO QHS 01/27/19 Donepezil HCl [Aricept] 10 mg PO BID 01/27/19 Furosemide [Lasix] 40 mg PO DAILY 01/27/19 Losartan Potassium [Cozaar] 100 mg PO DAILY 01/27/19 Omeprazole [Prilosec] 20 mg PO BID 01/27/19 Primary Care Physician: Evelyn Larsen [Primary Care Provider] - Please follow up with your Primary Care Physician in: in 1-2 week Test Results: Test results from this visit will be discussed in further detail at your follow- up appointment, if applicable.
--- NOTE | 2019-01-28 11:15 | PCM.CONS.C ---
Problem List (1) Paroxysmal A-fib Status: Chronic (2) H/O aortic valve repair Status: Chronic (3) HTN (hypertension) Status: Chronic (4) Alzheimer's dementia Status: Chronic Reason for Consult Date of Consultation: 01/28/19 History of Present Illness: The patient is a 83 year old white female with a past medical history of paroxysmal atrial fibrillation, aortic valve replacement, hypertension, and dementia who was referred for evaluation of her paroxysmal atrial fibrillation. According to the patient's daughter, who is her POA and is from [place] visiting the patient, the patient has apparently been feeling somewhat weak recently. There were concerns as to whether or not this was cardiac related. She was brought to the emergency department for further evaluation. She was found to be in atrial fibrillation. The patient's daughter states this is not new as she has had this on and off since her open heart surgery/aortic valve replacement. She has been on aspirin therapy and rate control therapy. She states there is been no anticoagulant therapy. She also notes she follows with a spaghetti machine operator from [facility] with her yearly visit scheduled for 02-06-19. She notes that since the visit of approximately 1 year ago, which apparently included a transthoracic echocardiogram, there is been no additional cardiac diagnostic studies or therapeutic intervention. There is been no report of ongoing chest discomfort or difficulty breathing suspicious for angina pectoris or CHF/pulmonary edema. There has been no report of near syncope or syncope. The patient was brought into the hospital. Her cardiac enzymes were negative. Her follow-up ECG demonstrated sinus rhythm with PACs with consideration for voltage criteria for LVH. There are no additional cardiovascular diagnostic studies available for review. Her chest x-ray suggested no acute cardiopulmonary disease process. There were findings compatible with a post open heart surgery procedure. At the moment the patient appears to deny any acute symptoms. She has been up and ambulating in her room. Unfortunately she cannot remember where she had her open heart surgery performed. She also apparently has had difficulty, living alone, taking her medications as scribed and packaged. Her daughter states that she will find medications that have not been opened and taken. She also questions whether she has been accidentally over taking nonprescription medications including medications such as Excedrin. The patient's daughter states that she will be staying with the patient as they prepare her house for sale. She will then be taking the patient back to live with her in [place]. [] Past Medical History Allergies/Adverse Reactions: Allergies oxycodone Allergy (Verified 01/27/19 13:26) Other amoxicillin [From Augmentin] Adverse Reaction (Verified 01/27/19 13:26) Nausea clarithromycin [From Biaxin] Adverse Reaction (Verified 01/27/19 13:26) Nausea clavulanic acid [From Augmentin] Adverse Reaction (Verified 01/27/19 13:26) Nausea lovastatin [From Mevacor] Adverse Reaction (Verified 01/27/19 13:26) Other pravastatin [From Pravachol] Adverse Reaction (Verified 01/27/19 13:26) Abd cramps/diarrhea simvastatin [From Zocor] Adverse Reaction (Verified 01/27/19 13:26) Abd cramps/diarrhea Home Medications: Ambulatory Orders Medication Instructions Recorded Amlodipine [Norvasc] 5 mg PO BID 01/27/19 Aspirin E.C. 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 Denies: Fever, Fatigue, Night Sweats Cardiovascular: Denies: Chest Discomfort, Shortness of Breath, Orthopnea, PND, Peripheral Edema, Palpitations, Lightheadedness, Dizziness, Near Syncope, Syncope Respiratory: Denies: Cough, Sputum Production, Hemoptysis Gastrointestinal: Denies: Hematemesis, Hematochezia, Melena Genitourinary: Denies: Dysuria, Hematuria Skin: Denies: Rash Subjectve: This is a pleasant 83-year-old white female who appears to be resting comfortably at the moment in no acute distress. Objective: Vital Signs Temp Pulse Resp BP Pulse Ox 98.4 F 72 14 113/57 L 98 01/28/19 09:48 01/28/19 09:48 01/28/19 09:48 01/28/19 09:48 01/28/19 09:48 Oxygen Delivery Method Room Air Weight: 153 lb 14.122 oz Body Mass Index (BMI) 26.4 Intake and Output for Last 24 Hours 01/26/19 01/27/19 01/28/19 23:59 23:59 23:59 Intake Total 561 / 561 447 / 447 Balance 561 / 561 447 / 447 General: Awake, Cooperative, No Acute Distress HEENT: Atraumatic, Normocephalic, PERRL, EOMI, Sclera Non Icteric Oral: Moist Mucosa Neck: Supple, Good ROM, No JVD Lungs: Clear to auscultation Cardiovascular: Regular Rhythm, Premature Ectopic Beats, Normal S1, Normal S2 Murmur Murmur: Grade 2/6, Soft, Mid Systolic, [place], Axilla, - - Grade 2/6 soft diastolic murmur at the lower left sternal border Vascular: Evin Carotid Artery Bruits Abdomen: Bowel Sounds Present, Soft, Non Tender Extremities: No edema Psych/Mental Status: Dementia 01/27/19 13:25: WBC 9.9, RBC 4.37, Hgb 12.5, Hct 37.8, MCV 86.5, MCH 28.6, MCHC 33.1, RDW 14.1, RDW Differential 43.4, Plt Count 213, MPV 12.7 H, Immature Gran % (Auto) 0.300, Neut % (Auto) 76.2 H, Lymph % (Auto) 16.1 L, [place] % (Auto) 6.9, Eos % (Auto) 0.1, Baso % (Auto) 0.4, Absolute Neuts (auto) 7.5, Total Counted Not Reportable 01/27/19 13:25: Sodium 139, Potassium 4.2, Chloride 107, Carbon Dioxide 23.0, Anion Gap 9, BUN 35 H, Creatinine 1.56 H, Est GFR (MDRD) Af Amer 41 L, Est GFR (MDRD) Non-Af 34 L, BUN/Creatinine Ratio 22.4 H, Glucose 145 H, Calcium 9.1, Total Bilirubin 0.50, Direct Bilirubin 0.19, Troponin I 0.022 01/27/19 14:02: Urine Color Yellow, Urine Clarity Clear, Urine pH 5.0, Ur Specific [place] 1.010, Urine Protein Negative, Urine Glucose (UA) Normal, Urine Ketones Negative, Urine Occult Blood 10 H, Urine Nitrite Negative, Urine Bilirubin Negative, Urine Urobilinogen Normal, Ur Leukocyte Esterase Negative, Urine RBC 0 SEEN, Urine WBC 0 SEEN 01/28/19 05:28: Sodium 144, Potassium 4.2, Chloride 111 H, Carbon Dioxide 26.0, Anion Gap 7, BUN 33 H, Creatinine 1.30 H, Est GFR (MDRD) Af Amer 50 L, Est GFR (MDRD) Non-Af 42 L, BUN/Creatinine Ratio 25.4 H, Glucose 101, Calcium 8.8 Rhythm: Sinus rhythm; PACs EKG: As noted above CXR: As noted above Assessment/Plan 1. Paroxysmal atrial fibrillation At the present time she appears to have a history of paroxysmal atrial fibrillation. At the moment she is back in sinus rhythm. She will continue her low-dose rate control therapy/low-dose beta-maggy therapy as apparently the daughter states she also has had histories of bradycardia in the past. She will also continue antiplatelet therapy with aspirin. She is not an ideal candidate, while living alone and with evidence of not taking medications as prescribed, for anticoagulant therapy based upon safety issues. However, when she is in a controlled environment with her daughter or elsewhere where her medications can be given to her in a controlled fashion, then it may be reasonable to consider anticoagulant therapy unless otherwise contraindicated. 2. Status post aortic valve replacement The patient has had an aortic valve replacement. The patient and daughter are not sure as to exactly when and where this occurred. She believes that this may have occurred approximately 8 years ago in [place], [place]. She has been following with her local spaghetti machine operator out of [facility] for her cardiovascular condition. At the moment it does not appear that she has any acute valvular related issues/compromise. Thus she will continue with plans to follow-up with her primary spaghetti machine operator in the near future. 3. Hypertension She does have history of hypertension. Her medications can be adjusted as deemed appropriate with taking into consideration avoidance of any marked bradycardia related issues. 4. Dementia She also has dementia. Again the daughter states that they realize it is not safe for her to live alone any longer. Thus, her daughter will be staying with her locally until she takes her to live with her [place]. Comment: The patient is also noted to have bilateral carotid artery bruits. According to the daughter this is not a new finding. She states there are no plans for any type of intervention with respect to her carotid artery findings. Comment: The patient's case was discussed and reviewed with the patient, her daughter, and Dr. Harris. This note was generated using a voice recognition system and there may be incorrect words, spelling or punctuation that were not noted when reviewing the office note prior to saving.
--- NOTE | 2019-01-28 11:19 | CON.PCM_ITS ---
Problem List (1) Paroxysmal A-fib Status: Chronic (2) H/O aortic valve repair Status: Chronic (3) HTN (hypertension) Status: Chronic (4) Alzheimer's dementia Status: Chronic Reason for Consult Date of Consultation: 01/28/19 History of Present Illness: The patient is a 83 year old white female with a past medical history of par oxysmal atrial fibrillation, aortic valve replacement, hypertension, and dementia who was referred for evaluation of her paroxysmal atrial fibrillation. According to the patient's daughter, who is her POA and is from [place] visiting the patient, the patient has apparently been feeling somewhat weak recently. There were concerns as to whether or not this was cardiac related. She was brought to the emergency department for further evaluation. She was found to be in atrial fibrillation. The patient's daughter states this is not new as she has had this on and off since her open heart surgery/aortic valve replacement. She has been on aspirin therapy and rate control therapy. She states there is been no anticoagulant therapy. She also notes she follows with a asbestos siding mechanic from [facility] with her yearly visit scheduled for 02-06-19. She notes that since the visit of approximately 1 year ago, which apparently included a transthoracic echocardiogram, there is been no additional cardiac diagnostic studies or therapeutic intervention. There is been no report of ongoing chest discomfort or difficulty breathing suspicious for angina pectoris or CHF/pulmonary edema. There has been no report of near syncope or syncope. The patient was brought into the hospital. Her cardiac enzymes were negative. Her follow-up ECG demonstrated sinus rhythm with PACs with consideration for voltage criteria for LVH. There are no additional cardiovascular diagnostic studies available for review. Her chest x-ray suggested no acute cardiopulmonary disease process. There were findings compatible with a post open heart surgery procedure. At the moment the patient appears to deny any acute symptoms. She has been up and ambulating in her room. Unfortunately she cannot remember where she had her open heart surgery performed. She also apparently has had difficulty, living alone, taking her medications as scribed and packaged. Her daughter states that she will find medications that have not been opened and taken. She also questions whether she has been accidentally over taking nonprescription medications including medications such as Excedrin. The patient's daughter states that she will be staying with the patient as they prepare her house for sale. She will then be taking the patient back to live with her in [place]. [] Past Medical History Allergies/Adverse Reactions: Allergies oxycodone Allergy (Verified 01/27/19 13:26) Other amoxicillin [From Augmentin] Adverse Reaction (Verified 01/27/19 13:26) Nausea clarithromycin [From Biaxin] Adverse Reaction (Verified 01/27/19 13:26) Nausea clavulanic acid [From Augmentin] Adverse Reaction (Verified 01/27/19 13:26) Nausea lovastatin [From Mevacor] Adverse Reaction (Verified 01/27/19 13:26) Other pravastatin [From Pravachol] Adverse Reaction (Verified 01/27/19 13:26) Abd cramps/diarrhea simvastatin [From Zocor] Adverse Reaction (Verified 01/27/19 13:26) Abd cramps/diarrhea Home Medications: Ambulatory Orders Medication Instructions Recorded Amlodipine [Norvasc] 5 mg PO BID 01/27/19 Aspirin E.C. 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 Denies: Fever, Fatigue, Night Sweats Cardiovascular: Denies: Chest Discomfort, Shortness of Breath, Orthopnea, PND, Peripheral Edema, Palpitations, Lightheadedness, Dizziness, Near Syncope, Syncope Respiratory: Denies: Cough, Sputum Production, Hemoptysis Gastrointestinal: Denies: Hematemesis, Hematochezia, Melena Genitourinary: Denies: Dysuria, Hematuria Skin: Denies: Rash Subjectve: This is a pleasant 83-year-old white female who appears to be resting comfortably at the moment in no acute distress. Objective: Vital Signs Temp Pulse Resp BP Pulse Ox 98.4 F 72 14 113/57 L 98 01/28/19 09:48 01/28/19 09:48 01/28/19 09:48 01/28/19 09:48 01/28/19 09:48 Oxygen Delivery Method Room Air Weight: 153 lb 14.122 oz Body Mass Index (BMI) 26.4 Intake and Output for Last 24 Hours 01/26/19 01/27/19 01/28/19 23:59 23:59 23:59 Intake Total 561 / 561 447 / 447 Balance 561 / 561 447 / 447 General: Awake, Cooperative, No Acute Distress HEENT: Atraumatic, Normocephalic, PERRL, EOMI, Sclera Non Icteric Oral: Moist Mucosa Neck: Supple, Good ROM, No JVD Lungs: Clear to auscultation Cardiovascular: Regular Rhythm, Premature Ectopic Beats, Normal S1, Normal S2 Murmur Murmur: Grade 2/6, Soft, Mid Systolic, [place], Axilla, - - Grade 2/6 soft diastolic murmur at the lower left sternal border Vascular: Evin Carotid Artery Bruits Abdomen: Bowel Sounds Present, Soft, Non Tender Extremities: No edema Psych/Mental Status: Dementia 01/27/19 13:25: WBC 9.9, RBC 4.37, Hgb 12.5, Hct 37.8, MCV 86.5, MCH 28.6, MCHC 33.1, RDW 14.1, RDW Differential 43.4, Plt Count 213, MPV 12.7 H, Immature Gran % (Auto) 0.300, Neut % (Auto) 76.2 H, Lymph % (Auto) 16.1 L, [place] % (Auto) 6.9, Eos % (Auto) 0.1, Baso % (Auto) 0.4, Absolute Neuts (auto) 7.5, Total Counted Not Reportable 01/27/19 13:25: Sodium 139, Potassium 4.2, Chloride 107, Carbon Dioxide 23.0, Anion Gap 9, BUN 35 H, Creatinine 1.56 H, Est GFR (MDRD) Af Amer 41 L, Est GFR (MDRD) Non-Af 34 L, BUN/Creatinine Ratio 22.4 H, Glucose 145 H, Calcium 9.1, Total Bilirubin 0.50, Direct Bilirubin 0.19, Troponin I 0.022 01/27/19 14:02: Urine Color Yellow, Urine Clarity Clear, Urine pH 5.0, Ur Specific [place] 1.010, Urine Protein Negative, Urine Glucose (UA) Normal, Urine Ketones Negative, Urine Occult Blood 10 H, Urine Nitrite Negative, Urine Bilirubin Negative, Urine Urobilinogen Normal, Ur Leukocyte Esterase Negative, Urine RBC 0 SEEN, Urine WBC 0 SEEN 01/28/19 05:28: Sodium 144, Potassium 4.2, Chloride 111 H, Carbon Dioxide 26.0, Anion Gap 7, BUN 33 H, Creatinine 1.30 H, Est GFR (MDRD) Af Amer 50 L, Est GFR (MDRD) Non-Af 42 L, BUN/Creatinine Ratio 25.4 H, Glucose 101, Calcium 8.8 Rhythm: Sinus rhythm; PACs EKG: As noted above CXR: As noted above Assessment/Plan 1. Paroxysmal atrial fibrillation At the present time she appears to have a history of paroxysmal atrial fibrillation. At the moment she is back in sinus rhythm. She will continue her low-dose rate control therapy/low-dose beta-maggy therapy as apparently the daughter states she also has had histories of bradycardia in the past. She will also continue antiplatelet therapy with aspirin. She is not an ideal candidate, while living alone and with evidence of not taking medications as prescribed, for anticoagulant therapy based upon safety issues. However, when she is in a controlled environment with her daughter or elsewhere where her medications can be given to her in a controlled fashion, then it may be reasonable to consider anticoagulant therapy unless otherwise con traindicated. 2. Status post aortic valve replacement The patient has had an aortic valve replacement. The patient and daughter are not sure as to exactly when and where this occurred. She believes that this may have occurred approximately 8 years ago in [place], [place]. She has been following with her local asbestos siding mechanic out of [facility] for her cardiovascular condition. At the moment it does not appear that she has any acute valvular related issues/compromise. Thus she will continue with plans to follow-up with her primary asbestos siding mechanic in the near future. 3. Hypertension She does have history of hypertension. Her medications can be adjusted as deemed appropriate with taking into consideration avoidance of any marked bradycardia related issues. 4. Dementia She also has dementia. Again the daughter states that they realize it is not safe for her to live alone any longer. Thus, her daughter will be staying with her locally until she takes her to live with her [place]. Comment: The patient is also noted to have bilateral carotid artery bruits. According to the daughter this is not a new finding. She states there are no plans for any type of intervention with respect to her carotid artery findings. Comment: The patient's case was discussed and reviewed with the patient, her daughter, and Dr. Harris. This note was generated using a voice recognition system and there may be incorrect words, spelling or punctuation that were not noted when reviewing the office note prior to saving.
== END 2019-01-28 11:11 | disposition home or self-care (01) ==
LOC: ED 14:25 → PCU 18:03
PROVIDERS: Physician Assistant; Admitting Provider Internal Medicine; Emergency Provider Emergency Medicine; Family Provider Internal Medicine; PCP Internal Medicine; Referring Provider Internal Medicine; Visit Provider Internal Medicine
DX: R53.1 Weakness (principal); I48.0 Paroxysmal atrial fibrillation; G30.9 Alzheimer's disease, unspecified; F02.80 Dementia in other diseases classified elsewhere, unspecified severity, without behavioral disturbance, psychotic disturbance, mood disturbance, and anxiety; I10 Essential (primary) hypertension; Z95.2 Presence of prosthetic heart valve; Z79.899 Other long term (current) drug therapy; Z79.01 Long term (current) use of anticoagulants; K21.9 Gastro-esophageal reflux disease without esophagitis; E78.5 Hyperlipidemia, unspecified; I65.23 Occlusion and stenosis of bilateral carotid arteries; Z87.891 Personal history of nicotine dependence
CPT/HCPCS: 36415; 70496; 70498; 71045; 74177; 80048; 80076; 81001; 83690; 84484; 85025; 93005; 96360; 96361; 96372; 97162; 97165; 97802; 99218; 99285; J7030; Q9967; A4216; G0378

== ENCOUNTER → 2020-07-10 05:00 | Outpatient (REF) | payer MEDICARE, OTHER, SELFPAY ==
[2019-01-27 18:35] VITALS: BMI 26.4
[2020-07-10 08:44] LABS: Hematocrit 36.6 % (37-47); Hemoglobin 11.3 g/dL (12.0-15.0); Mean Corp Hgb Conc 30.9 g/dL (32-36); Mean Corpuscular Hgb 28.3 pg (27.0-32.0); Mean Corpuscular Volume 91.7 fL (81-99); Platelet Count 258 K/mm3 (150-450); RBC Distribution Width CV 13.3 % (11.6-14.6); RBC Distribution Width SD 44.3 fl (35.1-43.9); Red Blood Count 3.99 M/mm3 (4.2-5.4); White Blood Count 9.3 K/mm3 (4.4-11.0)
[2020-07-10 10:04] LABS: AST(SGOT) 23 U/L (15-37); Alanine Aminotransfer ALT/SGPT 17 U/L (13-56); Albumin, Serum 3.4 g/dL (3.2-5.0); Alkaline Phosphatase 134 U/L (45-117); Anion Gap 7 (5-15); BUN 30 mg/dL (7-18); BUN/Creat Ratio 18.6 RATIO (10-20); Chloride 103 mmol/L (98-107); Cholesterol 154 mg/dL (200); Creatinine, Serum 1.61 mg/dL (0.55-1.02); EST Glomerular Filtration Rate 32 mL/min (>60); Est Glom Filt Rate - Afr Amer 39 mL/min (>60); Globulin 3.5 g/dL (2.2-4.2); Glucose 86 mg/dL (74-106); High Density Lipoprotein 42 mg/dL; Potassium 4.4 mmol/L (3.5-5.1); Protein, Total 6.9 g/dL (6.4-8.2); Sodium Level 139 mmol/L (136-145); Thyroid Stim Hormone (TSH) 2.02 uIU/mL (0.358-3.74); Triglycerides 114 mg/dL; Very Low Density Lipoprotein 23 mg/dL (5-40)
[2020-07-10 10:39] LABS: Vitamin B12 841 pg/mL (211-911); Vitamin D,25 Hydroxy 41.9 ng/mL
== END ==
LOC: OLS.DANBUR 05:00
PROVIDERS: PCP Internal Medicine; Referring Provider Family Medicine; Visit Provider Family Medicine
DX: I48.91 Unspecified atrial fibrillation (principal); I10 Essential (primary) hypertension; E78.5 Hyperlipidemia, unspecified; E55.9 Vitamin D deficiency, unspecified; R73.9 Hyperglycemia, unspecified
CPT/HCPCS: 36415; 80053; 80061; 82306; 82607; 82746; 84443; 85027

== ENCOUNTER → 2020-10-30 05:00 | Outpatient (REF) | payer MEDICARE, OTHER, SELFPAY ==
[2019-01-27 18:35] VITALS: BMI 26.4
[2020-10-30 07:07] LABS: Hematocrit 32.3 % (37-47); Hemoglobin 10.5 g/dL (12.0-15.0); Mean Corp Hgb Conc 32.5 g/dL (32-36); Mean Corpuscular Hgb 29.5 pg (27.0-32.0); Mean Corpuscular Volume 90.7 fL (81-99); Mean Platelet Vol. 12.4 fl (6.2-12.0); Platelet Count 184 K/mm3 (150-450); RBC Distribution Width CV 14.2 % (11.6-14.6); RBC Distribution Width SD 46.2 fl (35.1-43.9); Red Blood Count 3.56 M/mm3 (4.2-5.4); White Blood Count 6.6 K/mm3 (4.4-11.0)
== END ==
LOC: OLS.DANBUR 05:00
PROVIDERS: PCP Internal Medicine; Referring Provider Family Medicine; Visit Provider Family Medicine
DX: I48.91 Unspecified atrial fibrillation (principal); I10 Essential (primary) hypertension; E78.5 Hyperlipidemia, unspecified; E55.9 Vitamin D deficiency, unspecified; R73.9 Hyperglycemia, unspecified
CPT/HCPCS: 36415; 85027

== ENCOUNTER → 2021-01-29 05:00 | Outpatient (REF) | payer MEDICARE, OTHER, SELFPAY ==
[2019-01-27 18:35] VITALS: BMI 26.4
[2021-01-29 07:58] LABS: Absolute Lymphocyte Count 3.09 X10^3/uL (0.83-4.51); Absolute Neutrophil Count 4.1 X10^3/uL (2.0-7.7); Basophil# 0.05 X10^3/uL; Basophil% 0.6 % (0-1); Eosinophil# 0.12 X10^3/uL; Eosinophils% 1.4 % (0-5); Hematocrit 37.8 % (37-47); Hemoglobin 11.6 g/dL (12.0-15.0); Lymphocyte # 3.09 X10^3/ul (0.83-4.51); Lymphocyte % 37.1 % (19-41); Mean Corp Hgb Conc 30.7 g/dL (32-36); Mean Corpuscular Hgb 29.6 pg (27.0-32.0); Mean Corpuscular Volume 96.4 fL (81-99); Mean Platelet Vol. 12.4 fl (6.2-12.0); Monocyte# 0.95 X10^3/uL; Monocyte% 11.4 % (0-10); NRBC Flagged by Analyzer 0 % (0-5); Neutrophil % 49.1 % (47-70); Platelet Count 251 K/mm3 (150-450); RBC Distribution Width CV 13.5 % (11.6-14.6); Red Blood Count 3.92 M/mm3 (4.2-5.4); White Blood Count 8.3 K/mm3 (4.4-11.0)
[2021-01-29 08:12] LABS: Cholesterol 143 mg/dL (200); High Density Lipoprotein 41 mg/dL; Triglycerides 121 mg/dL; Very Low Density Lipoprotein 24 mg/dL (5-40)
== END ==
LOC: OLS.DANBUR 05:00
PROVIDERS: PCP Internal Medicine; Visit Provider Family Medicine
DX: E78.5 Hyperlipidemia, unspecified (principal)
CPT/HCPCS: 36415; 80061; 85025

== ENCOUNTER 2021-03-07 07:33 | Emergency (ER) | payer MEDICARE, OTHER, SELFPAY ==
[2019-01-27 18:35] VITALS: BMI 26.4
[2021-03-07 07:34] VITALS: BP 121/61; PULSE 87; RESP 18; TEMP 36.3; O2SAT 97; BMI 23.4
[2021-03-07 07:37] VITALS: BP 121/61; PULSE 92; RESP 18; TEMP 36.3; O2SAT 97
--- NOTE | 2021-03-07 07:44 | CT_ITS ---
STUDY: CT BRAIN WITHOUT CONTRAST REASON FOR EXAM: Female, 85 years old. Fall, head trauma RADIATION DOSAGE (If Supplied By Facility): CTDIvol = ( 44.99 ) mGy, DLP = ( 745.49 ) mGycm TECHNIQUE: Transaxial CT imaging of the brain was performed without administration of intravenous contrast material. Individualized dose optimization techniques were used for this CT. COMPARISON: No relevant priors. FINDINGS: Normal soft tissue structures. Normal calvarium. 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 There is moderate cerebral atrophy with widening of the extra-axial spaces and ventricular dilatation. There are areas of decreased attenuation within the white matter tracts of the supratentorial brain, consistent with microvascular disease changes. Normal basal ganglia and thalami. Normal brainstem. Normal cerebellum. There is no intracranial hemorrhage. There are no findings of an acute ischemic infarction. Normal visualized paranasal sinuses. CT/Brain/Head without Contrast IMPRESSION: Chronic involutional changes of the brain. Electronically Signed: Albert Womack MD at 8:30 EDT , Service support ,
--- NOTE | 2021-03-07 07:46 | EDS_ITS ---
HPI History of Present Illness Chief Complaint: Fall Detail of Chief Complaint: Concern for fall and possible urinary tract infection Informant: EMS and SNF Limited: dementia Narrative Narrative: Patient presents to the emergency department via EMS from detention. Patient with history of dementia and very poor historian. ECF staff noted bruising above her left eye. Patient also apparently has had the strong smell of urine. Patient denies dysuria. She denies any headache, chest pain, shortness of breath, abdominal pain, or back pain. Patient not on any blood thinners. [facility] Medical History (Updated 03/07/21 @ 09:[address] Coby Lynn, DO) Alzheimer's dementia Amnesia Atrial fibrillation Cardiac murmur Essential hypertension Hearing loss Hyperglycemia Hyperlipidemia Vitamin D deficiency Home Medications amlodipine 5 mg PO BID 01/27/19 [History Last Taken Unknown] aspirin 81 mg PO DAILY 01/27/19 [History Last Taken Unknown] carvedilol 3.125 mg PO QHS 01/27/19 [History Last Taken Unknown] donepezil 5 mg PO DAILY 01/27/19 [History Last Taken Unknown] furosemide [Lasix] 40 mg PO DAILY 01/27/19 [History Last Taken Unknown] omeprazole 20 mg PO BID 01/27/19 [History Last Taken Unknown] acetaminophen 1,000 mg PO Q8H PRN PRN 03/07/21 [History Last Taken Unknown] acetaminophen 650 mg PO Q4H PRN 03/07/21 [History Last Taken Unknown] camphor-methyl salicyl-menthol [Salonpas] 1 patch TOPICAL DAILY 03/07/21 [History Last Taken Unknown] cyanocobalamin (vitamin B-12) 1,000 mcg PO DAILY 03/07/21 [History Last Taken Unknown] diclofenac sodium [Voltaren] 1 ea TOPICAL BID PRN PRN 03/07/21 [History Last Taken Unknown] divalproex [Depakote] 125 mg PO BID 03/07/21 [History Last Taken Unknown] escitalopram oxalate [Lexapro] 10 mg PO DAILY 03/07/21 [History Last Taken Unknown] loperamide 2 mg PO DAILY PRN PRN 03/07/21 [History Last Taken Unknown] loperamide 2 mg PO Q4H PRN 03/07/21 [History Last Taken Unknown] magnesium hydroxide [Milk of Magnesia] 30 ml PO DAILY PRN PRN 03/07/21 [History Last Taken Unknown] multivitamin [Multi-Daily] 1 tab PO DAILY 03/07/21 [History Last Taken Unknown] olmesartan [Benicar] 40 mg PO DAILY 03/07/21 [History Last Taken Unknown] tramadol 100 mg PO DAILY 03/07/21 [History Last Taken Unknown] Allergy/AdvReac Type Severity Reaction Status Date / Time oxycodone Allergy Other Verified 03/07/21 07:54 Penicillins Allergy Other Verified 03/07/21 07:54 amoxicillin [From Augmentin] AdvReac Nausea Verified 03/07/21 07:54 clarithromycin [From Biaxin] AdvReac Nausea Verified 03/07/21 07:54 clavulanic acid AdvReac Nausea Verified 03/07/21 07:54 [From Augmentin] lovastatin [From Mevacor] AdvReac Other Verified 03/07/21 07:54 pravastatin [From Pravachol] AdvReac Abd Verified 03/07/21 07:54 cramps/diarrhea simvastatin [From Zocor] AdvReac Abd Verified 03/07/21 07:54 cramps/diarrhea Surgical History (Updated 03/07/21 @ 07:42 by Tuan Vizcaino) 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 Social History Smoking Status: Former smoker ROS ROS ED Constitutional Constitutional ED: Reports systems reviewed and no addt'l complaints, except as documented; Denies body ache(s), change in weight or chills Eyes Eyes: Denies acute decrease in peripheral vision, change in vision, double vision or loss of vision ENT ENT ED: Reports none; Denies ear pain, lip swelling, loss taste/smell, neck pain, otalgia or sore throat Cardiovascular Cardiovascular: Reports none; Denies abdominal pain, chest pain with activity, leg edema, lightheadedness, palpitations, rapid heart rate or syncope Respiratory/Chest Respiratory/Chest: Reports none; Denies change in mental status, dry cough, dyspnea, hemoptysis, shortness of breath at rest or shortness of breath with exertion Gastrointestinal Gastrointestinal: Reports none; Denies abdominal pain, change in stool character, diarrhea, hematemesis, hematochezia, melena, rectal bleeding or vomiting Genitourinary Genitourinary ED: Reports none; Denies abdominal discomfort, anuria, dysuria, genital pain or polyuria Musculoskeletal Musculoskeletal: Reports none; Denies arthralgias, back pain, difficulty walking, extremity pain, muscle weakness or myalgias Integumentary Reports none; Denies abscess or rash Neurologic Neurologic: Reports none; Denies abnormal gait, confusion, focal weakness, frequent falls, headache(s), loss of vision, numbness, paresthesias, radicular pain, vertigo or weakness Psychiatric Psychiatric: Reports systems reviewed and no addt'l complaints, except as documented and none; Denies behavioral changes, confusion, difficulty concentrating, hallucinations, suicidal ideation, tactile hallucinations or visu al hallucinations Endocrine Endocrinology: Denies none, cold intolerance, excessive sweating, fatigue or heat intolerance Hematologic/Lymphatic Hematologic/Lymphatic: Reports none; Denies anemia, easy bleeding or easy bruising Allergic/Immunologic Allergic/Immunologic ED: Denies as per HPI, none, lip swelling, mouth swelling, throat swelling, tongue swelling or hives EXAM Physical Exam Const Vital Signs: 03/07/21 07:34 03/07/21 07:37 Temperature 97.4 F L 97.4 F L Temperature Source Temporal Temporal Pulse Rate 87 92 Respiratory Rate 18 18 Blood Pressure 121/61 H 121/61 H Blood Pressure Mean 81 81 Pulse Ox 97 97 Oxygen Delivery Method Room Air Room Air Positive well nourished and well developed General Appearance ED: well developed and NAD HEENT Reports TM's clear and moist mucous membranes HEENT Narrative: Patient has some faint ecchymosis noted above the left eyebrow with no bony tenderness or step-offs noted. normocephalic, atraumatic and trauma; Negative for tenderness Tympanic Membrane ED: Yes TM's clear Eyes PERRL and EOMs intact bilaterally General Eye ED: Negative for pale conjunctiva or scleral icterus Neck no lymphadenopathy, supple and no JVD General: Negative for tenderness Chest Wall inspection of chest normal and palpation of chest normal Chest: Negative for tenderness Resp normal respiratory effort and clear to auscultation bilaterally Effort and Inspection: Negative for respiratory distress or pain with movement Auscultation: Negative for rhonchi, wheezes or diminished lung sounds Cardio regular rate, regular rhythm, S1 normal heart sound, S2 normal heart sound and no murmurs Peripheral Pulses: pulses 2+ throughout GI normal to inspection, nondistended, normoactive bowel sounds, soft to palpation, non-tender, non-distended and no masses Back/Spine no CVA tenderness and no thoracic nor lumbar tenderness Extremity normal to inspection General Extremety ED: Negative for edema General Extremity: Negative for edema Neuro oriented x3, CN's II-XII intact bilaterally, no sensory deficits noted and gait normal Sensorium / Orientation: awake, alert, oriented to person, oriented to place and oriented to time Motor Exam: strength 5/5 throughout and strength abnormal Psych mental status grossly normal Skin no rashes or lesions noted and no wounds MDM MDM MDM Narrative Medical decision making narrative: Patient work-up in apartments unremarkable. CT of her brain was unremarkable. Labs are unremarkable. Urinalysis did show +3 bacteria but negative for nitrites and only 0-5 WBCs therefore a culture was sent. I feel patient can be discharged back to the detention safely. Lab Data Attestation: I reviewed the patient's lab results. Labs: Laboratory Results - last 24 hr 03/07/21 03/07/21 03/07/21 07:55 07:55 07:55 WBC 5.7 RBC 3.88 L Hgb 11.9 L Hct 36.7 L MCV 94.6 MCH 30.7 MCHC 32.4 RDW Std Deviation 46.1 H RDW Coeff of Amari 13.3 Plt Count 290 MPV 11.6 Sodium 140 Potassium 4.5 Chloride 106 Carbon Dioxide 28.0 Anion Gap 6 BUN 42 H Creatinine 1.79 H Estim Creat Clear Calc 19.84 Est GFR (MDRD) Af Amer 35 L Est GFR (MDRD) Non-Af 29 L BUN/Creatinine Ratio 23.5 H Glucose 82 Lactic Acid 0.6 Calcium 8.9 Urine Color Urine Clarity Urine pH Ur Specific [place] Urine Protein Urine Glucose (UA) Urine Ketones Urine Occult Blood Urine Nitrite Urine Bilirubin Urine Urobilinogen Ur Leukocyte Esterase Urine RBC Urine WBC Ur Squamous Epith Cells Urine Bacteria Urine Mucus 03/07/21 08:15 WBC RBC Hgb Hct MCV MCH MCHC RDW Std Deviation RDW Coeff of Amari Plt Count MPV Sodium Potassium Chloride Carbon Dioxide Anion Gap BUN Creatinine Estim Creat Clear Calc Est GFR (MDRD) Af Amer Est GFR (MDRD) Non-Af BUN/Creatinine Ratio Glucose Lactic Acid Calcium Urine Color Yellow Urine Clarity Clear Urine pH 5.0 Ur Specific [place] 1.020 Urine Protein Negative Urine Glucose (UA) Normal Urine Ketones 5 H Urine Occult Blood Negative Urine Nitrite Negative Urine Bilirubin Negative Urine Urobilinogen Normal Ur Leukocyte Esterase 100 H Urine RBC 0 SEEN Urine WBC 0-5 SEEN Ur Squamous Epith Cells 0 SEEN Urine Bacteria 3+ Urine Mucus 0 SEEN Radiography Diagnostic Testing: Radiology Impression Brain CT 03/07/21 07:44 IMPRESSION: Chronic involutional changes of the brain. Electronically Signed: Albert Womack MD at 8:30 EDT , Service support , Discharge Plan Triage Chief Complaint: Fall ED Provider: Coby Lynn Dx/Rx/DC Orders Clinical Impression: Fall, Head injury Instructions: ED Fall with Uncertain Cause, ED Head Injury (Adult) Prescriptions: No Action furosemide [Lasix] 40 MG tablet 40 mg PO DAILY RF: 0 donepezil 10 MG tablet 5 mg PO DAILY RF: 0 amlodipine 5 MG tablet 5 mg PO BID RF: 0 omeprazole 20 MG capsule 20 mg PO BID RF: 0 carvedilol 3.125 MG tablet 3.125 mg PO QHS RF: 0 aspirin 81 MG tablet 81 mg PO DAILY RF: 0 multivitamin [Multi-Daily] Tablet 1 tab PO DAILY RF: 0 loperamide 2 mg Capsule 2 mg PO Q4H PRN (Reason: Diarrhea) RF: 0 loperamide 2 mg Capsule 2 mg PO DAILY PRN PRN (Reason: Diarrhea) RF: 0 magnesium hydroxide [Milk of Magnesia] 400 mg/5 mL Suspension 30 ml PO DAILY PRN PRN (Reason: Constipation) RF: 0 divalproex [Depakote] 125 mg Tablet,Delayed Release (Dr/Ec) 125 mg PO BID RF: 0 olmesartan [Benicar] 40 mg Tablet 40 mg PO DAILY RF: 0 escitalopram oxalate [Lexapro] 10 mg Tablet 10 mg PO DAILY RF: 0 cyanocobalamin (vitamin B-12) 1,000 mcg Capsule 1,000 mcg PO DAILY RF: 0 acetaminophen 500 mg Tablet 1,000 mg PO Q8H PRN PRN (Reason: pain/fever) RF: 0 Salonpas Adhesive Patch,Medicated 1 patch TOPICAL DAILY RF: 0 acetaminophen 325 mg Capsule 650 mg PO Q4H PRN (Reason: pain/fever) RF: 0 diclofenac sodium [Voltaren] 1 % Gel 1 ea TOPICAL BID PRN PRN (Reason: Pain (Scale Score 1-3)) RF: 0 tramadol 100 mg Tablet 100 mg PO DAILY RF: 0 Primary Care Provider: Kt Lopes Referrals: Kt Lopes MD [Primary Care Provider] - 3-5 Days Disposition Disposition: Home, Self Care
[2021-03-07 08:02] LABS: Hematocrit 36.7 % (37-47); Hemoglobin 11.9 g/dL (12.0-15.0); Mean Corp Hgb Conc 32.4 g/dL (32-36); Mean Corpuscular Hgb 30.7 pg (27.0-32.0); Mean Corpuscular Volume 94.6 fL (81-99); Mean Platelet Vol. 11.6 fl (6.2-12.0); Platelet Count 290 K/mm3 (150-450); RBC Distribution Width CV 13.3 % (11.6-14.6); RBC Distribution Width SD 46.1 fl (35.1-43.9); Red Blood Count 3.88 M/mm3 (4.2-5.4); White Blood Count 5.7 K/mm3 (4.4-11.0)
[2021-03-07 08:16] LABS: Anion Gap 6 (5-15); BUN 42 mg/dL (7-18); BUN/Creat Ratio 23.5 RATIO (10-20); Calcium,Total 8.9 mg/dL (8.5-10.1); Chloride 106 mmol/L (98-107); Creatinine, Serum 1.79 mg/dL (0.55-1.02); EST Glomerular Filtration Rate 29 mL/min (>60); Est Glom Filt Rate - Afr Amer 35 mL/min (>60); Estimated Creatinine Clearance 19.84 ml/min; Glucose 82 mg/dL (74-106); Potassium 4.5 mmol/L (3.5-5.1); Sodium Level 140 mmol/L (136-145)
[2021-03-07 08:18] LABS: Mucous, Urine 0 SEEN /hpf (<or=2+); Red Blood Cells-Urine 0 SEEN /hpf (0-5); Squamous Epithelial Cells - UA 0 SEEN /hpf (5-10)
[2021-03-07 08:20] LABS: Color, Urine Yellow (Yellow); Glucose, Dipstick Normal (Normal); Ketone-Dipstick 5 mg/dl (Negative); Leukocyte Esterase-Dipstick 100 /ul (Negative); Nitrite-Dipstick Negative (Negative); Occult Blood-Urine Negative /ul (Negative); Protein-Dipstick Negative (Negative); Urine Bilirubin Dipstick Negative (Negative); Urine Clarity Clear (Clear); Urine Urobilinogen Normal (Normal)
[2021-03-07 08:28] LABS: Lactic Acid 0.6 mmol/L (0.4-1.9)
[2021-03-07] MEDS: 0.9% Normal Saline 1,000 ML 150 ML IV (08:35)
[2021-03-07 08:51] LABS: Bacteria 3+ /hpf (None Seen); White Blood Cells 0-5 SEEN /hpf (0-5)
[2021-03-07 09:20] VITALS: BP 138/74; PULSE 82; RESP 15; O2SAT 94
== END 2021-03-07 09:56 | disposition home or self-care (01) ==
PROVIDERS: Emergency Provider Emergency Medicine; PCP Family Medicine
DX: S00.12XA Contusion of left eyelid and periocular area, initial encounter (principal); R39.89 Other symptoms and signs involving the genitourinary system; W19.XXXA Unspecified fall, initial encounter; Y93.9 Activity, unspecified; Y92.129 Unspecified place in nursing home as the place of occurrence of the external cause; G30.9 Alzheimer's disease, unspecified; F02.80 Dementia in other diseases classified elsewhere, unspecified severity, without behavioral disturbance, psychotic disturbance, mood disturbance, and anxiety; I48.91 Unspecified atrial fibrillation; I10 Essential (primary) hypertension; H91.90 Unspecified hearing loss, unspecified ear; E78.5 Hyperlipidemia, unspecified; Z79.82 Long term (current) use of aspirin; Z79.899 Other long term (current) drug therapy; Z87.891 Personal history of nicotine dependence
CPT/HCPCS: 70450; 80048; 81001; 83605; 85027; 87086; 87088; 87186; 96360; 99285; J7030; P9612

== ENCOUNTER → 2021-03-26 07:52 | Outpatient (REF) | payer MEDICARE, OTHER, SELFPAY ==
[2021-03-07 07:34] VITALS: BMI 23.4
[2021-03-26 07:54] LABS: Mucous, Urine 0 SEEN /hpf (<or=2+); Red Blood Cells-Urine 0 SEEN /hpf (0-5)
[2021-03-26 08:16] LABS: Color, Urine Yellow (Yellow); Glucose, Dipstick Normal (Normal); Ketone-Dipstick Negative (Negative); Leukocyte Esterase-Dipstick 500 /ul (Negative); Nitrite-Dipstick Negative (Negative); Occult Blood-Urine Negative /ul (Negative); Protein-Dipstick 15 mg/dl (Negative); Urine Bilirubin Dipstick Negative (Negative); Urine Clarity Clear (Clear); Urine Urobilinogen Normal (Normal)
[2021-03-26 08:29] LABS: Bacteria 1+ /hpf (None Seen); Hyaline Cast 0-5 SEEN /lpf (0-5); Squamous Epithelial Cells - UA 0-5 SEEN /hpf (5-10); White Blood Cells 10-25 SEEN /hpf (0-5)
== END ==
LOC: OLS.DANBUR 07:52
PROVIDERS: PCP Family Medicine; Referring Provider Family Medicine; Visit Provider Family Medicine
DX: N39.0 Urinary tract infection, site not specified (principal)
CPT/HCPCS: 81001; 87077; 87086; 87088; 87186

== ENCOUNTER 2021-04-01 15:36 | Emergency (ER) | payer MEDICARE, OTHER, SELFPAY ==
[2021-04-01 15:37] VITALS: BP 151/128; PULSE 58; RESP 14; TEMP 35.9; BMI 21.9
[2021-04-01 15:42] VITALS: PULSE 73; O2SAT 97
--- NOTE | 2021-04-01 16:17 | CT_ITS ---
We are attempting to reach an attending provider to discuss findings. An addendum with communication details will be sent when the communication is complete. EXAM: CT HEAD WITHOUT INTRAVENOUS CONTRAST : 1935 CLINICAL INDICATION: head injury TECHNIQUE: Multiple axial images were obtained of the head without intravenous contrast. This CT exam was performed using one or more of the following dose reduction techniques: automated exposure control, adjustment of the mA and/or kV according to patient size, and/or use of iterative reconstruction technique. This report was created using [employer] report generation technology. COMPARISON: 03/07/2021 FINDINGS: BRAIN AND EXTRA-AXIAL SPACES: There is a small focus of increased density in the sulcus of the high right frontal lobe near the vertex compelled the small subarachnoid hemorrhage. There also appears to be a small parafalcine subdural hematoma near the vertex on the left that measures 4 mm. There is no mass-effect or shift. There is enlargement of the ventricular system and cortical sulci. There is hypoattenuation in the periventricular white matter. No evidence of acute infarct. There is preservation of the pollock/white matter interface. Posterior fossa structures are unremarkable. Basal cisterns are patent. BONES/JOINTS: Unremarkable. No discrete lytic or blastic abnormalities. SINUSES: Unremarkable as visualized. Clear. MASTOID AIR CELLS: Unremarkable. Clear. ORBITS: Visualized globes, extraocular muscles, optic nerves and retrobulbar fat appear unremarkable. CT/Brain/Head without Contrast IMPRESSION: Small subarachnoid hemorrhage with contusion near the vertex of the right frontal lobe. There is also a small left parafalcine subdural hematoma at the vertex. Individualized dose optimization techniques were used for this CT. at 1733 Reported and signed by: Dragan Aquino MD Electronically Signed: Dragan Aquino MD at 17:32 EDT Tel , Service support ,
--- NOTE | 2021-04-01 16:17 | EKG12_ITS ---
Test Reason : LACERATION Blood Pressure : / mmHG Vent. Rate : 093 BPM Atrial Rate : 091 BPM P-R Int : 000 ms QRS Dur : 084 ms QT Int : 356 ms P-R-T Axes : 000 054 033 degrees QTc Int : 442 ms Atrial fibrillation Nonspecific ST abnormality Abnormal ECG Confirmed by BRENNON RUBIO, PEG ([id number]), scientific publications editor RAJIV PLASENCIA ([id number]) on 04/06/2021 9:53:09 AM Referred By: TOMEKA Confirmed By:PEG WILLETT MD
--- NOTE | 2021-04-01 16:20 | EX.ED.GENINJ ---
HPI History of Present Illness Chief Complaint: Laceration Narrative Narrative: hospice currently presenting with laceration to the right occiput.85-year-old female with end-stage dementia on She is unable to tell me how she fell the right occiput. She does deny pain elsewhere. She is alert to self only. I discussed her with her POA who stated that this with her baseline. She also wanted to make sure she was not dehydrated and did not have a urinary tract infection and she is currently being treated for this. [facility] Medical History Alzheimer's dementia Amnesia Atrial fibrillation Cardiac murmur Essential hypertension Hearing loss Hyperglycemia Hyperlipidemia Vitamin D deficiency Home Medications amlodipine 5 mg PO BID 01/27/19 [History Last Taken Unknown] aspirin 81 mg PO DAILY 01/27/19 [History Last Taken Unknown] carvedilol 3.125 mg PO QHS 01/27/19 [History Last Taken Unknown] donepezil 5 mg PO DAILY 01/27/19 [History Last Taken Unknown] furosemide [Lasix] 40 mg PO DAILY 01/27/19 [History Last Taken Unknown] omeprazole 20 mg PO BID 01/27/19 [History Last Taken Unknown] acetaminophen 1,000 mg PO Q8H PRN PRN 03/07/21 [History Last Taken Unknown] acetaminophen 650 mg PO Q4H PRN 03/07/21 [History Last Taken Unknown] camphor-methyl salicyl-menthol [Salonpas] 1 patch TOPICAL DAILY 03/07/21 [History Last Taken Unknown] cyanocobalamin (vitamin B-12) 1,000 mcg PO DAILY 03/07/21 [History Last Taken Unknown] diclofenac sodium [Voltaren] 1 ea TOPICAL BID PRN PRN 03/07/21 [History Last Taken Unknown] divalproex [Depakote] 125 mg PO BID 03/07/21 [History Last Taken Unknown] escitalopram oxalate [Lexapro] 10 mg PO DAILY 03/07/21 [History Last Taken Unknown] loperamide 2 mg PO DAILY PRN PRN 03/07/21 [History Last Taken Unknown] loperamide 2 mg PO Q4H PRN 03/07/21 [History Last Taken Unknown] magnesium hydroxide [Milk of Magnesia] 30 ml PO DAILY PRN PRN 03/07/21 [History Last Taken Unknown] multivitamin [Multi-Daily] 1 tab PO DAILY 03/07/21 [History Last Taken Unknown] olmesartan [Benicar] 40 mg PO DAILY 03/07/21 [History Last Taken Unknown] tramadol 100 mg PO DAILY 03/07/21 [History Last Taken Unknown] Allergy/AdvReac Type Severity Reaction Status Date / Time oxycodone Allergy Other Verified 04/01/21 15:37 Penicillins Allergy Other Verified 04/01/21 15:37 amoxicillin [From Augmentin] AdvReac Nausea Verified 04/01/21 15:37 clarithromycin [From Biaxin] AdvReac Nausea Verified 04/01/21 15:37 clavulanic acid AdvReac Nausea Verified 04/01/21 15:37 [From Augmentin] lovastatin [From Mevacor] AdvReac Other Verified 04/01/21 15:37 pravastatin [From Pravachol] AdvReac Abd Verified 04/01/21 15:37 cramps/diarrhea simvastatin [From Zocor] AdvReac Abd Verified 04/01/21 15:37 cramps/diarrhea Surgical History 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 Social History Smoking Status: Former smoker ROS ROS ED Review of Systems ROS Unobtainable: due to mental condition and due to mental status EXAM Physical Exam Const Vital Signs: 04/01/21 15:37 04/01/21 15:42 Temperature 96.7 F L Temperature Source Temporal Pulse Rate 58 L 73 Respiratory Rate 14 Blood Pressure 151/128 H Blood Pressure Mean 135 Pulse Ox 97 Oxygen Delivery Method Room Air Positive well nourished General Appearance ED: NAD HEENT HEENT Narrative: 4 cm scalp laceration right side of occiput Eyes PERRL and EOMs intact bilaterally Resp normal respiratory effort and clear to auscultation bilaterally Cardio regular rhythm Rate: regular rate GI normal to inspection, nondistended, normoactive bowel sounds Back/Spine normal to inspection and no thoracic nor lumbar tenderness Extremity normal to inspection and full ROM General Extremety ED: Negative for deformity or tenderness General Extremity: Negative for deformity Neuro Sensorium / Orientation: alert and oriented to person; Negative for oriented to place or oriented to time Skin Skin Narrative: Laceration to scalp as described above. PROC Procedures Lacerations Scalp Laceration: Length: 1.57 in Depth: Skin Shape: Linear Prep: Sterile Conditions and Shure-Clens Laceration repair: Irrigated Irrigated (ml): 250 Number of Sutures/[place]: 2 MDM MDM MDM Narrative Medical decision making narrative: Patient presenting after fall with laceration to the scalp. Patient is at her baseline mentation after speaking with her daughter and POA. Patient's daughter states she is currently being treated for urinary tract infection and she does not necessarily think her mother needs a repeat urinalysis. I did check basic lab work and she is a slight leukocytosis at 12.7, hemoglobin 11.9, hematocrit 37.4, platelets 217. Creatinine is slightly elevated at 1.82 and patient given 500 cc of IV fluids. Electrolytes are normal. Her previous baseline was 1.72 with recent work-up. EKG shows atrial fibrillation at 93 bpm on my interpretation. Chest x-ray on my interpretation shows no acute cardiopulmonary process and the radiologist does agree. CT brain shows a small subarachnoid hemorrhage with contusion near the vertex of the right frontal lobe, and small left parafalcine subdural hematoma at the vertex. This was discussed with her daughter who is her power of document coordinator and she did not want any heroic measures. She states she wants her to go back with hospice for conservative care. Paced laceration was cleaned and stapled. Please see procedure note. 2 preet did approximate the wound margin. The second stapled it was attempted did not align the wound margin so a third staple was placed. Patient was agitated and did not want us to try to remove the staple. I believe that is okay to leave this here until patient has staple removal. Patient was discussed with hospice I am currently awaiting a disposition. Patient discussed with hospice and they will take her to inpatient hospice care. Patient will be transported in stable condition. Impression: 1. Subarachnoid hemorrhage 2. Small parafalcine subdural hematoma 3. 4 cm scalp laceration 4. Fall unknown cause Lab Data Attestation: I reviewed the patient's lab results. Labs: Laboratory Results - last 24 hr 04/01/21 04/01/21 04/01/21 16:59 16:59 16:59 WBC 12.7 H RBC 3.87 L Hgb 11.9 L Hct 37.4 MCV 96.6 MCH 30.7 MCHC 31.8 L RDW Std Deviation 47.4 H RDW Coeff of Amari 13.3 Plt Count 217 MPV 11.7 Immature Gran % (Auto) 0.600 Neut % (Auto) 75.6 H Lymph % (Auto) 13.7 L [place] % (Auto) 9.7 Eos % (Auto) 0.1 Baso % (Auto) 0.3 Absolute Neuts (auto) 9.6 H Absolute Lymphs (auto) 1.74 Nucleated RBC % 0 Sodium 139 Potassium 4.5 Chloride 107 Carbon Dioxide 25.0 Anion Gap 7 BUN 32 H Creatinine 1.82 H Estim Creat Clear Calc 21.98 Est GFR (MDRD) Af Amer 34 L Est GFR (MDRD) Non-Af 28 L BUN/Creatinine Ratio 17.6 Glucose 105 Calcium 9.3 Valproic Acid 8 L Radiography Diagnostic Testing: Radiology Impression Brain CT 04/01/21 16:17 IMPRESSION: Small subarachnoid hemorrhage with contusion near the vertex of the right frontal lobe. There is also a small left parafalcine subdural hematoma at the vertex. Individualized dose optimization techniques were used for this CT. at 4102 Reported and signed by: Dragan Aquino MD Electronically Signed: Dragan Aquino MD at 17:32 EDT Tel , Service support , ADDENDUM: 04/01/21 1819 IMPRESSION: Small subarachnoid hemorrhage with contusion near the vertex of the right frontal lobe. There is also a small left parafalcine subdural hematoma at the vertex. Individualized dose optimization techniques were used for this CT. at 1732 Reported and signed by: Dragan Aquino MD N.B. : The above Results were Read Back by Dragan Aquino MD to Dr Wilner MD, and understanding confirmed on 04/01/2021 18:12:30 (ET). Electronically Signed: Dragan Aquino MD at 17:32 EDT Tel , Service support , Chest X-Ray 04/01/21 17:15 IMPRESSION: No radiographic evidence of acute cardiopulmonary disease. at 1733 Reported and signed by: Dragan Aquino MD Electronically Signed: Dragan Aquino MD at 17:32 EDT Tel , Service support , Discharge Plan Triage Chief Complaint: Laceration ED Provider: Mayank Darby Dx/Rx/DC Orders Instructions: Hemorrhagic Stroke ..., What Is a Subdural Hematoma?, ED Laceration Scalp Stitches or Preet Prescriptions: No Action furosemide [Lasix] 40 MG tablet 40 mg PO DAILY RF: 0 donepezil 10 MG tablet 5 mg PO DAILY RF: 0 amlodipine 5 MG tablet 5 mg PO BID RF: 0 omeprazole 20 MG capsule 20 mg PO BID RF: 0 carvedilol 3.125 MG tablet 3.125 mg PO QHS RF: 0 aspirin 81 MG tablet 81 mg PO DAILY RF: 0 multivitamin [Multi-Daily] Tablet 1 tab PO DAILY RF: 0 loperamide 2 mg Capsule 2 mg PO Q4H PRN (Reason: Diarrhea) RF: 0 loperamide 2 mg Capsule 2 mg PO DAILY PRN PRN (Reason: Diarrhea) RF: 0 magnesium hydroxide [Milk of Magnesia] 400 mg/5 mL Suspension 30 ml PO DAILY PRN PRN (Reason: Constipation) RF: 0 divalproex [Depakote] 125 mg Tablet,Delayed Release (Dr/Ec) 125 mg PO BID RF: 0 olmesartan [Benicar] 40 mg Tablet 40 mg PO DAILY RF: 0 escitalopram oxalate [Lexapro] 10 mg Tablet 10 mg PO DAILY RF: 0 cyanocobalamin (vitamin B-12) 1,000 mcg Capsule 1,000 mcg PO DAILY RF: 0 acetaminophen 500 mg Tablet 1,000 mg PO Q8H PRN PRN (Reason: pain/fever) RF: 0 Salonpas Adhesive Patch,Medicated 1 patch TOPICAL DAILY RF: 0 acetaminophen 325 mg Capsule 650 mg PO Q4H PRN (Reason: pain/fever) RF: 0 diclofenac sodium [Voltaren] 1 % Gel 1 ea TOPICAL BID PRN PRN (Reason: Pain (Scale Score 1-3)) RF: 0 tramadol 100 mg Tablet 100 mg PO DAILY RF: 0 Primary Care Provider: Kt Lopes Referrals: Kt Lopes MD [Primary Care Provider] - Disposition Disposition: Home, Self Care
[2021-04-01 17:08] LABS: Absolute Lymphocyte Count 1.74 X10^3/uL (0.83-4.51); Absolute Neutrophil Count 9.6 X10^3/uL (2.0-7.7); Basophil# 0.04 X10^3/uL; Basophil% 0.3 % (0-1); Eosinophil# 0.01 X10^3/uL; Eosinophils% 0.1 % (0-5); Hematocrit 37.4 % (37-47); Hemoglobin 11.9 g/dL (12.0-15.0); Lymphocyte # 1.74 X10^3/ul (0.83-4.51); Lymphocyte % 13.7 % (19-41); Mean Corp Hgb Conc 31.8 g/dL (32-36); Mean Corpuscular Hgb 30.7 pg (27.0-32.0); Mean Corpuscular Volume 96.6 fL (81-99); Mean Platelet Vol. 11.7 fl (6.2-12.0); Monocyte# 1.23 X10^3/uL; Monocyte% 9.7 % (0-10); NRBC Flagged by Analyzer 0 % (0-5); Neutrophil # 9.63 X10^3/uL (2.7-7.7); Neutrophil % 75.6 % (47-70); Platelet Count 217 K/mm3 (150-450); RBC Distribution Width CV 13.3 % (11.6-14.6); RBC Distribution Width SD 47.4 fl (35.1-43.9); Red Blood Count 3.87 M/mm3 (4.2-5.4); White Blood Count 12.7 K/mm3 (4.4-11.0)
--- NOTE | 2021-04-01 17:15 | RAD_ITS ---
EXAM: XR CHEST, 1 VIEW : 1935 CLINICAL INDICATION: fall TECHNIQUE: Frontal view of the chest. This report was created using [employer] report generation technology. COMPARISON: None. FINDINGS: LUNGS AND PLEURAL SPACES: Unremarkable. No consolidation or edema. No pneumothorax. No effusion. HEART: Unremarkable. Cardiac silhouette not enlarged. MEDIASTINUM: Central airways and mediastinal contour are unremarkable. BONES/JOINTS: Unremarkable. SOFT TISSUES: Unremarkable. RAD/Chest 1 View (Portable) IMPRESSION: No radiographic evidence of acute cardiopulmonary disease. at 1733 Reported and signed by: Dragan Aquino MD Electronically Signed: Dragan Aquino MD at 17:32 EDT Tel , Service support ,
[2021-04-01] MEDS: Lidocaine/Epi/Tetracaine 50 ML 1 APPLIC TOPICAL (17:17)
[2021-04-01 17:20] LABS: Anion Gap 7 (5-15); BUN 32 mg/dL (7-18); BUN/Creat Ratio 17.6 RATIO (10-20); Calcium,Total 9.3 mg/dL (8.5-10.1); Chloride 107 mmol/L (98-107); Creatinine, Serum 1.82 mg/dL (0.55-1.02); EST Glomerular Filtration Rate 28 mL/min (>60); Est Glom Filt Rate - Afr Amer 34 mL/min (>60); Estimated Creatinine Clearance 21.98 ml/min; Glucose 105 mg/dL (74-106); Potassium 4.5 mmol/L (3.5-5.1); Sodium Level 139 mmol/L (136-145)
[2021-04-01 17:47] LABS: Valproic Acid (Depakene) Level 8 ug/mL (50-100)
--- NOTE | 2021-04-01 18:31 | ED.RN ---
Assisted Dr Darby with placing renee. Pt tolerated but not well. Pt dereklls at staff. Attempted to reassure pt
[2021-04-01 21:02] VITALS: BP 141/103; PULSE 61; RESP 18; O2SAT 94
== END 2021-04-01 21:21 | disposition home or self-care (01) ==
PROVIDERS: Emergency Provider Student in an Organized Health Care Education/Training Program; PCP Family Medicine
DX: S06.6X9A Traumatic subarachnoid hemorrhage with loss of consciousness of unspecified duration, initial encounter (principal); S06.5X9A Traumatic subdural hemorrhage with loss of consciousness of unspecified duration, initial encounter; S01.01XA Laceration without foreign body of scalp, initial encounter; W19.XXXA Unspecified fall, initial encounter; Y93.9 Activity, unspecified; Y92.9 Unspecified place or not applicable; N39.0 Urinary tract infection, site not specified; I10 Essential (primary) hypertension; E55.9 Vitamin D deficiency, unspecified; E78.5 Hyperlipidemia, unspecified; G30.9 Alzheimer's disease, unspecified; F02.80 Dementia in other diseases classified elsewhere, unspecified severity, without behavioral disturbance, psychotic disturbance, mood disturbance, and anxiety; I48.91 Unspecified atrial fibrillation; Z95.2 Presence of prosthetic heart valve; Z79.82 Long term (current) use of aspirin; Z79.899 Other long term (current) drug therapy; Z87.891 Personal history of nicotine dependence
CPT/HCPCS: 12002; 70450; 71045; 80048; 80164; 85025; 93005; 99284; J7030; A4216